=== PATIENT | female | born 1990 | race Caucasian/White ===

== ENCOUNTER 2022-07-04 13:08 | Outpatient (CLI) | payer BC, SELFPAY ==
[2022-07-06 15:02] LABS: Estradiol Premenol Female 50 pg/mL
[2022-07-06 17:24] LABS: Follicle Stimulating Hormone 6.9 IU/L
[2022-07-06 20:17] LABS: Prolactin 16.6 ng/mL (2.8-29.2)
== END 2022-07-04 13:09 | disposition home or self-care (01) ==
PROVIDERS: Visit Provider Obstetrics & Gynecology
DX: Z31.41 Encounter for fertility testing (principal)
CPT/HCPCS: 82670; 83001; 84146

== ENCOUNTER 2022-07-08 10:09 | Outpatient (CLI) | payer BC, SELFPAY ==
--- NOTE | 2022-07-08 10:15 | CRLHL7_ITS ---
For Patients: As a result of the Century Cures Act, medical imaging exams and procedure reports are released immediately into your electronic medical record. You may view this report before your referring provider. If you have questions, please contact your health care provider. Indication: infertility Technique: Routine hysterosalpingogram performed. Fluoroscopic time 28 seconds. IMPRESSION: Normal patency of the fallopian tubes. Normal endometrial canal. Dictated by Sammy Byers MD @ 07/08/2022 10:59:04 AM (Electronically Signed)
--- NOTE | 2022-07-08 10:48 | W.PM.GYNPROC ---
Procedure Note Time Seen by Provider: 10:48 Date Seen: 07/08/22 Procedure Details: PREPROCEDURE DIAGNOSIS: Infertility. POSTPROCEDURE DIAGNOSIS: 1. Infertility. 2. Patent fallopian tubes bilaterally. NAME OF PROCEDURE: Hysterosalpingogram. SURGEON: Ilan. ANESTHESIA: None. COMPLICATIONS: None. PROCEDURE: After obtaining verbal consent, the patient was placed in the dorsal lithotomy position on the x-ray table. An open-sided bivalve speculum was introduced into the vagina and the cervix easily visualized. The cervix and vagina were then prepped with Betadine. A balloon tipped double-lumen catheter was then gently inserted through the cervical opening into the uterine cavity to the level of the fundus. The balloon was insufflated with 2.5 mL of air. The speculum was removed. The patient was repositioned in the supine position, covered, and the radiologist was called to the room. A hysterosalpingogram was then performed. A total of 5 cc of Isovue 300 water soluble contrast dye was injected through the double-lumen catheter under moderate pressure. There was immediate fill of the uterine cavity to the cornua. The left fallopian tube, and then the right fallopian tube both filled with dye and there was spillage of dye on both sides into the pelvis. The balloon was deflated. The catheter was removed. The patient tolerated the procedure well, though she did have moderate cramping discomfort during and just after the procedure. She was discharged to home in stable condition and to [facility].
== END 2022-07-08 10:10 | disposition home or self-care (01) ==
PROVIDERS: Visit Provider Obstetrics & Gynecology
DX: N97.9 Female infertility, unspecified (principal)
CPT/HCPCS: 58340; 74740; A4649; Q9967

== ENCOUNTER 2022-07-22 14:00 | Outpatient (CLI) | payer BC, SELFPAY ==
[2022-07-27 15:15] LABS: Progesterone, HPLC-MS/MS 11.98 ng/mL
== END 2022-07-22 14:01 | disposition home or self-care (01) ==
PROVIDERS: Visit Provider Obstetrics & Gynecology
DX: Z31.41 Encounter for fertility testing (principal)
CPT/HCPCS: 84144

== ENCOUNTER 2025-07-01 16:28 | Emergency (ER) | payer OTHER, BC, SELFPAY ==
--- OUTSIDE RECORDS SUMMARY | 2025-07-01 16:31 | XMS_ITS | Encounter Summary ---
Author Organization [place] Address [facility] [place] [address] Care Team Providers Care Barn Hand Name Role Phone Jaci Nelson APRN CN Unavailable [phone] System, Provider Not In Primary Care Provider Un available Binh Plata MD Unavailable [phone] Binh Plata MD Unavailable [phone] Sammy Cummings MD Unavailable [phone] Binh Plata MD Unavailable + [phone] Adriana Velasquez MD Unavailable [phone] Sammi Cook Primary Care Provider [phone] Reason for Visit * Reason Onset Date Comments Results 01/11/2025 Encounter Details Date Type Department Care Team (Late st Contact Info) Description 01/11/2025 MyC Medical Advice [facility] [address] [place] [address] Sammy Cummings MD [address] [place] [address] Results Social History Tobacco Use Types Packs/Day Years Used Date Smoking Tobacco: Never Passive Smoke Exposure: Never Smokeless Tobacco: Never Alcohol Use Standard Drinks/Week Comments Not Currently 0 (1 standard drink = 0.6 oz pur e alcohol) PHQ-2 Answer Date Recorded PHQ-2 Score 0 12/06/2024 Education Answer Date Recorded What is the highest level of school you have completed or the highest degree you have received? 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 Sammy Cummings MD [facility] Dough Catcher Triage; Araceli Condon RN1 minute ago (10:52 AM) DB I wouldn't have any other advice than what you said. DB * Telephone Encounter - Araceli Condon RN - 01/11/2025 12:54 PM CDT [id number] CHARMAINE 01/03/25 Pt sends MyChart regarding scan from [facility] on 01/09/25. Pt asking about possibility of cleft lip. Pt was born with cleft lip. Scan states lips appeared normal. Nose was not well visualized and needs to be followed up on. I did review this with pt. Please advise further. Araceli Tolbert RN AG SERVICE MANAGER [place] documented in this encounter Plan of Treatment Upcoming Encounters Date Type Department Care Team (Late st Contact Info) Description 07/11/2025 2:15 PM CDT Office Visit [facility] [address] [place] [address] Binh Plata MD [address] [address] documented as of this encounter Visit Diagnoses Not on filedocumented in this encounter Care Teams Barn Hand Relationship Specialty Start Date End Date System, Provider Not In PCP - General Clinic 10/19/24 04/14/25 Sammi Cook [address] [address] PCP - General 04/15/25 Jaci Nelson APRN [facility] [address] [address] Rn Social Work stem roller or crusher operator 10/19/24 Binh Plata MD [address] [address] Physician stem roller or crusher operator 10/25/24 Binh Plata MD [address] [address] Assigned OBGYN Provider 01/02/25 Sammy Cummings MD [address] [address] Assigned OBGYN Provider 02/02/25 Binh Plata MD [address] [address] Assigned OBGYN Provider 03/04/25 Adriana Velasquez MD [address] [place] [address] Assigned Pediatric Specialist Provider 03/04/25 documented as of this encounter
--- OUTSIDE RECORDS SUMMARY | 2025-07-01 16:31 | XMS_ITS | Encounter Summary ---
Author Organization [place] Address [facility] [place] [address] Care Team Providers Care Car Salesperson Name Role Phone Jaci Nelson CHAS JENKINS Unavailable [phone] Binh Plata MD Unavailable [phone] Binh Plata MD Unavailable Adriana Velasquez MD Unavailable [phone] Sammi Cook Primary Care Provider [phone] Reason for Visit * Reason Onset Date Comments Blood Pressure Check 05/13/2025 Encounter Details Date Type Department Care Team (Late st Contact Info) Description 05/13/2025 Telephone [facility] [address] [place] [address] Binh Plata MD [address] [place], [place] [address] Blood Pressure Check Social History Tobacco Use Types Packs/Day Years Used Date Smoking Tobacco: Never Passive Smoke Exposure: Never Smokeless Tobacco: Never Alcohol Use Standard Drinks/Week Comments Not Currently 0 (1 standard drink = 0.6 oz pur e alcohol) PHQ-2 Answer Date Recorded PHQ-2 Score 0 12/06/2024 Thatcher Depression Scale Answer Date Recorded Thatcher Depression Scale Total 0 05/12/2025 The thought of harming myself has occurred to me . Never 05/12/2025 Food Insecurity Answer Date Recorded Within the past 12 months, d id you worry that your food would run out before you got money to buy more? No 05/09/2025 Within the past 12 months, d id the food you bought just not last and you didn t have money to get more? No 05/09/2025 Housing Stability Answer Date Recorded Do you have housing? (Miguel Angel callahan is defined as stable permanent housing and does not include staying outside in a car, in a tent, in an abandoned building, in an overnight senior care, or couch-surfing.) Yes 05/09/2025 Are you worried about losing your housing? No 05/09/2025 Financial Resource Strain Answer Date R ecorded Within the past 12 months, h ave you or your family members you live with been unable to get utilities (heat, electricity) when it was really needed? No 05/09/2025 Transportation Needs Answer Date Record ed Within the past 12 months, h as lack of transportation kept you from medical appointments, getting your medicines, non-medical meetings or appointments, work, or from getting things that you need? No 05/09/2025 Interpersonal Safety Answer Date Record ed Do you feel physically and e motionally safe where you currently live? Yes 05/09/2025 Within the past 12 months, h ave you been hit, slapped, kicked or otherwise physically hurt by someone? No 05/09/2025 Within the past 12 months, h ave you been humiliated or emotionally abused in other ways by your partner or ex-partner? No 05/09/2025 Education Answer Date Recorded What is the highest level of school you have completed or the highest degree you have received? 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 Left message with callback number and sent mychart message. STEVEN Maki * Telephone Encounter - Arely Yung RN - 05/13/2025 3:36 PM CDT ----- Message from Binh Plata sent at 05/13/2025 3:24 PM CDT ----- Regarding: RE: NORMA RN BP Check - Wednesday 05/16 Oh my gosh I'm so sorry! Patient is now added to the email! Binh Plata MD ----- Message ----- From: Arely Yung RN Sent: 05/13/2025 1:49 PM CDT To: Binh Plata MD Subject: FW: PP RN BP Check - Wednesday 05/16 Hi, There is no pt attached with this message. You mind shooting the MRN over? Thanks! STEVEN Maki ----- Message ----- From: Binh Plata MD Sent: 05/13/2025 1:47 PM CDT To: [facility] Butter Melter Triage Subject: PP RN BP Check - Wednesday 05/16 Hello: - Please call to coordinate a RN BP check on Wednesday 05/16. - At visit she should be instructed to check BP at home 1-2 x a day and record the results, and to call clinic with any values greater than or equal to 150/100 and/or with any symptoms of preeclampsia. Thanks, Binh Plata MD documented in this encounter Plan of Treatment Upcoming Encounters Date Type Department Care Team (Late st Contact Info) Description 07/11/2025 2:15 PM CDT Office Visit [facility] [address] [phone] Binh Plata MD [address] [address] documented as of this encounter Visit Diagnoses Not on filedocumented in this encounter Care Teams Car Salesperson Relationship Specialty Start Date End Date Sammi Cook [address] [address] PCP - General 04/15/25 Jaci Nelson APRN CNM [address] [address] Fish Hatchery Supervisor senior counsel 10/19/24 Binh Plata MD [address], [address] [address] Physician senior counsel 10/25/24 Binh Plata MD [address], [address] [address] Assigned OBGYN Provider 03/04/25 Adriana Velasquez MD [address] [place] [address] Assigned Pediatric Specialist Provider 03/04/25 documented as of this encounter
--- OUTSIDE RECORDS SUMMARY | 2025-07-01 16:31 | XMS_ITS | Encounter Summary ---
Author Organization [place] Address [address] [facility] [place] [address] Care Team Providers Care Chrome Polisher Name Role Phone Jaci Nelson CHAS JENKINS Unavailable [phone] Binh Plata MD Unavailable [phone] Binh Plata MD Unavailable [phone] Adriana Velasquez MD Unavailable [phone] Sammi Cook Primary Care Provider [phone] Encounter Details Date Type Department Care Team (Latest Contact Info) Description 05/11/2025 Medical Correspondence [facility] Information Management [address] [facility] [address] [place] [address] Scan, Non-Provider [place] [facility] DEPRESSION SCALE Social History Tobacco Use Types Packs/Day Years Used Date Smoking Tobacco: Never Passive Smoke Exposure: Never Smokeless Tobacco: Never Alcohol Use Standard Drinks/Week Comments Not Currently 0 (1 standard drink = 0.6 oz pur e alcohol) PHQ-2 Answer Date Recorded PHQ-2 Score 0 12/06/2024 Bradford Depression Scale Answer Date Recorded [place] Depression Scale Total 0 05/12/2025 The thought [...] in an abandoned building, in an overnight fpc, or couch-surfing.) Yes 05/09/2025 Are you worried [...] Sex Assigned at Female 10/25/2024 3:40 PM MUSIC CRITIC Legal Sex Female 4:56 AM MUSIC CRITIC Gender Identity Female 10/25/2024 3:40 PM MUSIC CRITIC Sexual Orientation Straight 10/25/2024 3: 40 PM MUSIC CRITIC 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 Not on file Not on file documented as of this encounter Plan of Treatment Upcoming Encounters Date Type Department Care Team (Late st Contact Info) Description 07/11/2025 2:15 PM CDT Office Visit [facility] [address] [place] [address] Binh Plata MD [address] [address] documented as of this encounter Visit Diagnoses Not on filedocumented in this encounter Care Teams Chrome Polisher Relationship Specialty Start Date End Date Sammi Cook [address] [address] PCP - General 04/15/25 Jaci Nelson APRN CNM [address] [address] Trouble Dispatcher feltmaker 10/19/24 Binh Plata MD [address] [address] Physician feltmaker 10/25/24 Binh Plata MD [address] [address] Assigned OBGYN Provider 03/04/25 Adriana Velasquez MD [address] [place] [id number] Assigned Pediatric Specialist Provider 03/04/25 documented as of this encounter
--- OUTSIDE RECORDS SUMMARY | 2025-07-01 16:31 | XMS_ITS | Encounter Summary ---
Author Organization [place] Address [facility]0 [facility] [address] Care Team Providers Care Debrander Name Role Phone Jaci Nelson CHAS JENKINS Unavailable [phone] Binh Plata MD Unavailable [phone] Binh Plata MD Unavailable [phone] Adriana Velasquez MD Unavailable [phone] Sammi Cook Primary Care Provider [phone] Reason for Visit * Reason Onset Date Comments Forms 05/25/2025 Encounter Details Date Type Department Care Team (Late st Contact Info) Description 05/25/2025 Telephone [facility] [address] [place] [address] Binh Plata MD [address] [place], [place] [address] Forms Social History Tobacco Use Types Packs/Day Years Used Date Smoking Tobacco: Never Passive Smoke Exposure: Never Smokeless Tobacco: Never Alcohol Use Standard Drinks/Week Comments Not Currently 0 (1 standard drink = 0.6 oz pur e alcohol) PHQ-2 Answer Date Recorded PHQ-2 Score 0 12/06/2024 Overton Depression Scale Answer Date Recorded [place] Depression Scale Total 0 05/12/2025 The thought [...] in an abandoned building, in an overnight snf, or couch-surfing.) Yes 05/09/2025 Are you worried [...] Sex Assigned at Female 10/25/2024 3:40 PM RESIDENTIAL GREEN BUILDING DESIGNER Legal Sex Female 4:56 AM RESIDENTIAL GREEN BUILDING DESIGNER Gender Identity Female 10/25/2024 3:40 PM RESIDENTIAL GREEN BUILDING DESIGNER Sexual Orientation Straight 10/25/2024 3: 40 PM RESIDENTIAL GREEN BUILDING DESIGNER 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 * Telephone Encounter - Merle Beck LPN - 05/27/2025 3:43 PM CDT Forms filled out. Awaiting Dr Plata's review and signature. * Telephone Encounter - Vika Cuevas - 05/25/2025 11:01 AM CDT Form received from: [facility] [employer] [place] fax Form requesting following info/need: FMLA leave [place] needed?: no/attached Location of form: above desk at front end manager When completed the route for return: [phone] fax documented in this encounter Plan of Treatment Upcoming Encounters Date Type Department Care Team (Late st Contact Info) Description 07/11/2025 2:15 PM CDT Office Visit [facility] [place] [address] [place] [phone] Binh Plata MD [address] [address] documented as of this encounter Visit Diagnoses Not on filedocumented in this encounter Care Teams Debrander Relationship Specialty Start Date End Date Sammi Cook [address] [address] PCP - General 04/15/25 Jaci Nelson APRN CNM [address] [address] Timber Supervisor tractor trailer operator 10/19/24 Binh Plata MD [address] [address] Physician tractor trailer operator 10/25/24 Binh Plata MD [address] [address] Assigned OBGYN Provider 03/04/25 Adriana Velasquez MD [address] [place] [address] Assigned Pediatric Specialist Provider 03/04/25 documented as of this encounter
--- OUTSIDE RECORDS SUMMARY | 2025-07-01 16:31 | XMS_ITS | Clinical Summary ---
Author Organization [place] Address [facility] [place] [address] Care Team Providers Care Electro Winning Operator Name Role Phone Jaci Nelson CHAS JENKINS Unavailable [phone] Ovi Plata MD Unavailable Ovi Plata MD Unavailable Adriana Velasquez MD Unavailable [phone] Sammi Cook Primary Care Provider [phone] Allergies Active Allergy Reactions Criticality Noted Date Comments Hydralazine Swelling 05/09/2025 Facial swelling, bloody nose Medications Vit-Fe Fumarate-FA ( MULTIVITAMIN PLUS IRON) 27-1 MG TABSIndications:P regnancy Take 1 tablet by mouth daily. Active albuterol (PROAIR HFA/PROVENTIL HFA/VENTOLIN HFA) 108 (90 Base) MCG/ACT inhaler Inhale 2 puffs into the lungs every 6 hours as needed for shortness of breath, wheezing or cough. Active oxyCODONE (ROXICODONE) 5 MG tabletIndications : delivery delivered Take 1 tablet (5 mg) by mouth every 6 hours as needed for moderate to severe pain. 5 tablet 5 Active NIFEdipine ER OSMOTIC (ADALAT CC) 30 MG 24 hr tabletIndications :Severe preeclampsia, third trimester Take 1 tablet (30 mg) by mouth 2 times daily. 90 tablet 5 Active enalapril (VASOTEC) 10 MG tabletIndications :Severe preeclampsia, third trimester Take 1 tablet (10 mg) by mouth daily. 45 tablet 5 Active senna-docusate (SENOKOT-S/PILLO LACE) 8.6-50 MG tabletIndications : delivery delivered Take 1-2 tablets by mouth daily as needed for constipation. 60 tablet 1 5 Active valACYclovir (VALTREX) 1000 mg tabletIndications :Recurrent cold sores Take 2 tablets (2,000 mg) by mouth once for 1 dose. 2 tablet 5 Active Active Problems Problem Noted Date Diagnosed Date Preeclampsia, severe 05/13/2025 Encounter for triage in patient 025 Pre-eclampsia 05/09/2025 Encounters Date Type Department Care Team Description 05/25/2025 Telephone [facility] [address] [facility] [address] [place] [phone] Ovi Plata MD Forms 05/16/2025 11:15 AM CDT Allied Health/Nurse Visit [facility] [address] [facility] [address] [place] [phone] Allied Health Visit 05/16/2025 Travel 05/13/2025 Telephone [facility] [address] [address] Ovi Plata MD Blood Pressure Check 05/11/2025 Medical Correspondence [facility] Information Management [address] [place] [address] [address] [place] [address] Scan, Non-Provider [facility] DEPRESSION SCALE 05/11/2025 Results Follow-Up [facility] [address] [facility] [address] [place] [address] Codi Berry, Subj: Message about your results 05/09/2025 7:00 PM CDT - 05/09/2025 8:30 PM CDT Surgery [facility] [address] [place] [address] Codi Berry DO section 05/09/2025 6:53 PM CDT Anesthesia Event [facility] [address] [place] [address] Jair Armendariz MD Thilgen, Randy M, 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 05/09/2025 10:08 AM CDT - 05/13/2025 4:30 PM CDT Hospital Encounter [facility] [address] [place] [address] Codi Berry DO delivery delivered (Primary Dx); Pre-eclampsia in third trimester; Severe preeclampsia, third trimester; Recurrent cold sores Discharge Disposition: Home-Health Care [facility] 05/09/2025 Telephone [facility] [address] [facility] [address] [place] [address] None Call Back (Call back ); Care 05/06/2025 Travel 04/25/2025 8:30 AM CDT Office Visit [facility] [address] [facility] [address] [place] [address] Briana Cummings MD Supervision of high risk , antepartum (Primary Dx) 04/25/2025 Travel 04/24/2025 Travel 04/13/2025 10:45 AM CDT Office Visit [facility] Maternal Medicine [facility] [address] [facility] [address] [place] [address] Adriana Velasquez MD Sabol, Bethany, MD resulting from in vitro fertilization in third trimester (Primary Dx) 04/13/2025 9:53 AM CDT - 04/13/2025 11:59 PM CDT Hospital Encounter [facility] Maternal Medicine [facility] [address] [facility] [address] [place] [address] Adriana Velasquez MD Thornton, Andrew Thomas, MD Sabol, Bethany, MD In vitro fertilization Discharge Disposition: Home or Self Care 04/13/2025 Results Follow-Up [facility] [place] [address] [place] [address] Ovi Plata MD Subj: Message about your results 04/13/2025 Travel from Last 3 Months Immunizations Immunization Administration Dates Next Due COVID-19 MONOVALENT 12+ (Pfizer) 07/13/2021 COVID-19 Vaccine, Unspecified 07/13/2021 Flu, Unspecified 07/13/2024,07/17/2017 HPV Quadrivalent 10/20/2009,05/12/2009, 9 Hepatitis B, Peds (Engerix-B/Recombivax HB) 02/10/2004,05/17/2003,04/13/2003 Historical DTP/aP 06/25/1996 INFLUENZA,TRIVALENT (FLUCELVAX) 08/05/2024 Influenza (H1N1) 10/20/2009 Influenza (IIV3) PF 07/13/2022 Influenza Vaccine >6 months,quad, PF 03/23/2024, 08/12/2022 Influenza Vaccine, 6+MO IM (QUADRIVALENT W/PRESERVATIVES) 08/08/2020,07/27/2016,07/04/2014,07/26,10/12/2010,10/23/2009 MMR (MMRII) 10/02/2016,06/25/1996 Meningococcal ACWY (Menactra ) 06/12/2009 OPV, trivalent, live 06/25/1996 TDAP (Adacel,Boostrix) 2025,10/15/2012 Td (Adult), Adsorbed 05/17/2003 Family History Medical History Relation Comments Seizure Disorder Brother Glaucoma Father Recurrent Miscarriage Maternal Grandmother No Known Problems Mother Cerebral palsy Sister Relation Status Comments Brother Alive Father Alive Maternal Grandmother Mother Alive Sister Alive Social History Tobacco Use Types Packs/Day Years Used Date Smoking Tobacco: Never Passive Smoke Exposure: Never Smokeless Tobacco: Never Tobacco Cessation:Counseling Given: No Alcohol Use Standard Drinks/Week Comments Not Currently 0 (1 standard drink = 0.6 oz pur e alcohol) PHQ-2 Answer Date Recorded PHQ-2 Score 0 12/06/2024 [place] Depression Scale Answer Date Recorded [place] Depression Scale Total 0 05/12/2025 The thought [...] Recorded Do you have housing? 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 Not on file Not on file Last Filed Vital Signs Vital Sign Reading Time Taken Comments Blood Pressure 128/78 05/16/2025 11:24 AM CDT Pulse 84 05/13/2025 12:34 PM CDT Temperature 36.9 C (98.4 F) 05/13/2025 7:37 AM CDT Respiratory Rate 16 05/13/2025 7:37 AM CDT Oxygen Saturation 100% 05/10/2025 5:24 PM CDT Inhaled Oxygen Concentration - - Weight 88.5 kg (195 lb) 05/16/2025 11:18 AM CDT Height 165.1 cm (5' 5) 05/09/2025 10:26 AM CDT Body Mass Index 32.45 05/09/2025 10:26 AM CDT Plan of Treatment Upcoming Encounters Date Type Department Care Team (Late st Contact Info) Description 07/11/2025 2:15 PM CDT Office Visit [facility] [address] [place] [address] Ovi Plata MD [address] [place] [address] Health Maintenance Due Date Last Done Comments ADVANCE CARE PLANNING 1991 ANNUAL REVIEW OF HM ORDERS 1991 ASTHMA ACTION PLAN 1991 ASTHMA CONTROL TEST 1991 PNEUMOCOCCAL VACCINE: PEDIAT RICS (0 to 5 YEARS) AND AT-RISK PATIENTS (6 to 49 YEARS) (1 of 2 - PCV) 2010 YEARLY PREVENTIVE VISIT 03/23/2025 03/23/20 24, 08/12/2022, 05/16/2021, Additional history exists INFLUENZA VACCINE (#1) 2025 , 07/13/2024, 03/23/2024, Additional history exists HPV TEST 12/06/2029 12/06/2024, 08/08/2020 PAP 12/06/2029 12/06/2024, 11/14, 05/16/2021, Additional history exists DTAP/TDAP/TD VACCINE (5 - Td or Tdap) 2035 2025, 10/15/2012, 05/17/2003, Additional history exists ZOSTER VACCINE (1 of 2) 2041 HEPATITIS B VACCINE Completed 02/10/2004, 05/17/2003, 04/13/2003 MENINGITIS VACCINE Completed 06/12/2009 HPV VACCINE Completed 10/20/2009, 04/14, 03/08/2009 COVID-19 VACCINE Completed 08/05/2024, 07/13/2021 HEPATITIS C SCREENING Completed 11/11/2024 , 10/28/2023, 08/12/2022, Additional history exists HIV SCREENING Completed 11/11/2024, 10/28/2023 PHQ-2 (once per calendar year) Completed 12/06/2024 , 11/09/2024 Procedures Procedure Name Priority Date/Time Associated Diagnosis Comments PLATELET COUNT Routine 05/10/2025 6:42 AM CDT HEMOGLOBIN Routine 05/10/2025 6:42 AM CDT CREATININE Routine 05/10/2025 6:42 AM CDT AST Routine 05/10/2025 6:42 AM CDT ALT Routine 05/10/2025 6:42 AM CDT EXTRA GREEN TOP (LITHIUM HEPARIN) TUBE Routine 05/09/2025 9:49 PM CDT EXTRA TUBE Routine 05/09/2025 9:49 PM CDT HEMOGLOBIN STAT 05/09/2025 9:49 PM CDT PLACENTA PATH ORDER AND INDICATIONS Routine 05/09/2025 7:38 PM CDT ANE SPINAL BLOCK FORM Routine 05/09/2025 7:00 PM CDT SECTION 05/09/2025 6:57 PM CDT 35 weeks gestation of ABO/RH TYPE AND SCREEN STAT 05/09/2025 12:22 PM CDT TYPE AND SCREEN, ADULT STAT 05/09/2025 12:22 PM CDT TREPONEMA ABS W REFLEX TO RPR AND TITER STAT 05/09/2025 12:22 PM CDT GROUP B STREP PCR STAT 05/09/2025 11: 52 AM CDT CBC WITH PLATELETS (LIMITED OCCURRENCES) STAT 05/09/2025 10:23 AM CDT COMPREHENSIVE METABOLIC PANEL (LIMITED OCCURRENCES) STAT 05/09/2025 10:23 AM CDT PROTEIN AND CREATININE WITH RATIO RANDOM URINE STAT 05/09/2025 10:22 AM CDT [facility] COMPREHENSIVE SINGLE F/U Routine 04/13/2025 10:50 AM CDT In vitro fertilization GLUCOSE TOLERANCE GEST SCREEN 1 HOUR Routine 2025 9:19 AM CDT Supervision of normal [place] NON-INVASIVE SCREENING PREQUEL Routine 12/06/2024 10:04 AM BARREL INSPECTOR TIGHT Supervision of high risk , antepartum HPV AND GYNECOLOGIC CYTOLOGY PANEL Routine 12/06/2024 8:59 AM BARREL INSPECTOR TIGHT Screening for cervical cancer HIV ANTIGEN ANTIBODY COMBO Routine 11/11/2024 2:39 PM BARREL INSPECTOR TIGHT Encounter for supervision of normal first in first trimester HEPATITIS C ANTIBODY Routine 11/11/2024 2:39 PM BARREL INSPECTOR TIGHT Encounter for supervision of normal first in first trimester from Last 3 Months or Most Recently Relevant to Health Maintenance Results * Platelet count (05/10/2025 6:42 AM CDT) Platelet Count 179 150 - 450 10e3/uL 05/10/2025 6:57 AM CDT [facility] MCV 90 78 - 100 fL 05/10/2025 6:57 AM CDT [facility] Blood STRUCTURE OF RIGHT UPPER LIMB / Unknown Venipuncture / Unknown 05/10/2025 6:42 AM CDT 05/10/2025 6:52 AM CDT Codi Berry DO LAB - BLOOD ORDERABLES Fi nal Result [facility] [address] Lab (1st floor, no room number) [address] * Hemoglobin (05/10/2025 6:42 AM CDT) Only the most recent of2 resultswithin the time period is included. Hemoglobin 11.8 11.7 - 15.7 g/dL 05/10/2025 6:57 AM CDT LABORATORY MCV 90 78 - 100 fL 05/10/2025 6:57 AM CDT LABORATORY Blood STRUCTURE OF RIGHT UPPER LIMB / Unknown Venipuncture / Unknown 05/10/2025 6:42 AM CDT 05/10/2025 6:52 AM CDT us Codi Berry DO LAB - BLOOD ORDERABLES Fi nal Result [facility] [address] Lab (1st floor, no room number) [address] * Creatinine (05/10/2025 6:42 AM CDT) Creatinine 0.67 0.51 - 0.95 mg/dL 05/10/2025 7:16 AM CDT LABORATORY GFR Estimate >90 >60 mL/min/1.7 3m2 05/10/2025 7:16 AM CDT [facility] Comment:eGFR calculated us2020 CKD-EPI equation. Blood STRUCTURE OF RIGHT UPPER LIMB / Unknown Venipuncture / Unknown 05/10/2025 6:42 AM CDT 05/10/2025 6:52 AM CDT Codi Berry DO LAB - BLOOD ORDERABLES Fi nal Result [facility] [address] Lab (1st floor, no room number) [place] [phone] [place] [address] * AST (05/10/2025 6:42 AM CDT) AST 19 0 - 45 U/L 05/10/2025 7:1 6 AM CDT [facility] Blood STRUCTURE OF RIGHT UPPER LIMB / Unknown Venipuncture / Unknown 05/10/2025 6:42 AM CDT 05/10/2025 6:52 AM CDT Codi Berry DO LAB - BLOOD ORDERABLES Fi nal Result Performing Organization Address [facility]/ZIP Co de Phone Number [facility] [address] Lab (1st floor, no room number) [place] [phone] [place] [address] * ALT (05/10/2025 6:42 AM CDT) ALT 7 0 - 50 U/L 05/10/2025 7:1 6 AM CDT [facility] Blood STRUCTURE OF RIGHT UPPER LIMB / Unknown Venipuncture / Unknown 05/10/2025 6:42 AM CDT 05/10/2025 6:52 AM CDT Codi Berry DO LAB - BLOOD ORDERABLES Fi nal Result [facility] [address] Lab (1st floor, no room number) [place] [phone] * Extra Green Top ([place] Heparin) Tube (05/09/2025 9:49 PM CDT) Hold Specimen JI 05/09/2025 11:31 PM CDT LABORATORY Blood STRUCTURE OF RIGHT HAND / Unknown Venipuncture / Unknown 05/09/2025 9:49 PM CDT 05/09/2025 10:17 PM CDT us Codi Berry DO LAB - BLOOD ORDERABLES Fi nal Result LABORATORY [facility] Lab [address] Lab (1st floor, no room number) [place] [address] * Placenta path order and indications (05/09/2025 7:38 PM CDT) Case Report Surgical Pathology Report Case: [id number] Authorizing Provider: Codi Berry DO Collected: 05/09/2025 07:38 PM Ordering Location: [facility] Received: 05/10/2025 07:42 AM Birthplace Pathologist: Geri Moctezuma MD Specimen: Placenta 05/11/2025 12:12 PM CDT LABORATORY Final Diagnosis A. Placenta, 488 grams: -Mature benitez placenta with unremarkable membranes and three-vessel umbilical cord. 05/11/2025 12:12 PM CDT LABORATORY at 1212 CDT Clinical Information pre-e 05/11/2025 12:12 PM CDT LABORATORY Gross Description A(A). Placenta, : The specimen is received in formalin labeled with the patient's name, medical record number, and other identifying information and designated placenta. Type: Benitez CORD Length: 33.5 cm Diameter: 1.2-2.1 cm Number of vessels: 3 Insertion: Eccentric (located 1.5 cm from placental disc edge) MEMBRANES Condition: Disrupted Color: Pale-griggs Transparency: thin and translucent to mildly thickened Insertion: marginal DISC Trimmed weight: 488 g Dimensions: 18.5 x 16.8 x 0.3-3.8 cm Surface: steel blue and glistening with a normal arborizing pattern of vasculature Maternal surface: Red-brown intact, flattened cotyledons Findings upon sectioning: Red-brown, soft cut surface with multifocal areas of fibrous mottling predominately located along the peripheral edge of the placental disc (makes up approximate less than 5% of placental disc) SUMMARY OF SECTIONS: A1- membrane roll and umbilical cord A2-A3-full thickness central 1/3 of placenta, bisected A4-A5-full thickness peripheral placenta, bisected A6-representativ e sections of fibrous mottling (TIFFANY Bustillo (ASCP) 05/10/2025 8:10 AM 05/11/2025 12:12 PM CDT LABORATORY Microscopic Description Microscopic examination was performed. 05/11/2025 12:12 PM CDT LABORATORY Performing Labs The technical component of this testing was completed at [facility]. Stain controls for all stains resulted within this report have been reviewed and show appropriate reactivity. 05/11/2025 12:12 PM CDT LABORATORY Case Images 05/11/2025 12:12 PM CDT LABORATORY Placenta PLACENTAL STRUCTURE / Unknown Non-blood Collection / Unknown 05/09/2025 7:38 PM CDT 05/10/2025 7:42 AM CDT us Codi Berry DO LAB - ANA AP Final Res ult LABORATORY [facility] Lab [address] 1st floor, [address] [place] [address], [facility] [phone] LABORATORY [facility] Lab [address] [facility] Lab (1st floor, no room number) [place] [address] * Spinal Block (05/09/2025 7:00 PM CDT) Narrative Jair Armendariz MD - 05/09/2025 7:00 PM CDT Jair Armendariz MD 05/09/2025 7:08 PM Intrathecal injection Procedure Note Pre-Procedure Staff - Anesthesiologist: Jair Armendariz MD Performed By: anesthesiologist Location: OB Procedure Start/Stop Times: 05/09/2025 7:00 PM and 05/09/2025 7:03 PM Pre-Anesthestic Checklist: patient identified, IV checked, risks and benefits discussed, informed consent, monitors and equipment checked, pre-op evaluation and at physician/surgeon's request Timeout: Correct Patient: Yes Correct Procedure: Yes Correct Site: Yes Correct Position: Yes Procedure Documentation Procedure: intrathecal injection Patient Position: sitting Patient Prep/Sterile Barriers: sterile gloves, mask Skin prep: Chloraprep Insertion Site: L3-4. (midline approach). Needle Gauge: 25. Spinal Needle Type: Sprotte Introducer used Introducer: 20 G # of attempts: 1 and # of redirects: 1 Assessment/Narrative Paresthesias: No. Sensory Level: T5 CSF fluid: clear. Medication(s) Administered 0.75% Hyperbaric Bupivacaine (Intrathecal) - Intrathecal 1.6 mL - 05/09/2025 7:03:00 PM Morphine PF 1 mg/mL (Intrathecal) - Intrathecal 0.15 mg - 05/09/2025 7:03:00 PM Medication Administration Time: 05/09/2025 7:00 PM FOR [facility] ([facility]) ONLY: Pain Team Contact information: please page the Pain Team Via eCircle. Search Pain. During daytime hours, please page the attending first. At night please page the resident first. us Jair Armendariz MD [place] ANESTHESIA Final Resu lt * Adult Type and Screen (05/09/2025 12:22 PM CDT) ABO/RH(D) O NEG 05/09/2025 12:06 PM CDT [facility] BLOOD BANK Antibody Screen Negative Negative 05/09/2025 12:06 PM CDT RH BLOOD BANK SPECIMEN EXPIRATION DATE 05/12/2025 11:59:00 PM CDT 05/09/2025 12:06 PM CDT RH BLOOD BANK Blood BLOOD SPECIMEN / Unknown Venipuncture / Unknown 05/09/2025 12:22 PM CDT 05/09/2025 12:28 PM CDT us Codi Berry DO LAB - BLOOD BANK TEST ORD ER Final Result BLOOD BANK [address] [place] [address], [facility] * Treponema Abs w Reflex to RPR and Titer (05/09/2025 12:22 PM CDT) Treponema Antibody Total Nonreactive Nonreactive 05/09/2025 4:54 PM CDT SPECIALTY LABS Blood BLOOD SPECIMEN / Unknown Venipuncture / Unknown 05/09/2025 12:22 PM CDT 05/09/2025 12:28 PM CDT Codi Berry DO LAB - BLOOD ORDERABLES Fi nal Result [facility] CORE/PROT/ENDO Specialty Core/Prot/Endo [address] [facility] Building, Room [id number] [place] [address] SPECIALTY LABS Specialty Lab [address] [facility], [address] [address], [place] * Group B strep PCR (05/09/2025 11:52 AM CDT) Group B Strep PCR Negative Negative 025 12:45 PM CDT [facility] Comment:Presumed negative fo r Streptococcus agalactiae (Group B Streptococcus) or the number of organisms may be below the limit of detection of the assay. Swab STRUCTURE OF RECTOVAGINAL SEPTUM / Unknown Non-blood Collection / Unknown 05/09/2025 11:52 AM CDT 05/09/2025 12:13 PM CDT Narrative [facility] - 05/10/2025 12:45 PM CDT The [employer] Xpert GBS LB Assay, performed on the [employer] Systems, is a qualitative in vitro diagnostic test designed to detect Group B Streptococcus (GBS) DNA from enriched vaginal/rectal swab specimens, using fully automated, real-time polymerase chain reaction (PCR) with fluorogenic detection of the amplified DNA. Xpert GBS LB Assay testing is indicated as an aid in determining GBS colonization status in antepartum women. This assay does not diagnose or monitor treatment for GBS infections. The [employer] Xpert GBS LB Assay is intended for use in hospital, reference or state laboratory settings. The device is not intended for ingoi-yo-xurv use. us Codi Berry DO LAB - MICRO GENERAL ORDER MILAGROS Final Result [facility] Inf. Diseases Di[facility]. Lab [address] [facility], [address] [place] [address], [place] * CBC with Platelets (Limited Occurrences) (05/09/2025 10:23 AM CDT) [facility] WBC Count 7.7 4.0 - 11.0 10e3/uL 05/09/2025 10:37 AM CDT [facility] RBC Count 3.94 3.80 - 5.20 10e6/uL 05/09/2025 10:37 AM CDT [facility] Hemoglobin 12.3 11.7 - 15.7 g/dL 05/09/2025 10:37 AM CDT [facility] Hematocrit 35.2 35.0 - 47.0 % 05/09/2025 10:37 AM CDT LABORATORY MCV 89 78 - 100 fL 05/09/2025 10:37 AM CDT LABORATORY MCH 31.2 26.5 - 33.0 pg 05/09/2025 10:37 AM CDT LABORATORY MCHC 34.9 31.5 - 36.5 g/dL 05/09/2025 10:37 AM CDT LABORATORY RDW 12.6 10.0 - 15.0 % 05/09/2025 10:37 AM CDT LABORATORY Platelet Count 183 150 - 450 10e3/uL 05/09/2025 10:37 AM CDT LABORATORY Blood STRUCTURE OF LEFT UPPER LIMB / Unknown Venipuncture / Unknown 05/09/2025 10:23 AM CDT 05/09/2025 10:28 AM CDT us Codi Berry DO LAB - BLOOD ORDERABLES Fi nal Result [facility] Lab [address] Lab (1st floor, no room number) [place] [address], [place] * (ABNORMAL) Comprehensive Metabolic Panel (Limited Occurrences) (05/09/2025 10:23 AM CDT) Sodium 138 135 - 145 mmol/L 05/09/2025 10:59 AM CDT LABORATORY Potassium 3.9 3.4 - 5.3 mmol/L 05/09/2025 10:59 AM CDT LABORATORY Carbon Dioxide (CO2) 21(L) 22 - 29 mmol/L 05/09/2025 10:59 AM CDT LABORATORY Anion Gap 13 7 - 15 mmol/L 05/09/2025 10:59 AM CDT LABORATORY Urea Nitrogen 5.0(L) 6.0 - 20.0 mg/dL 05/09/2025 10:59 AM CDT LABORATORY Creatinine 0.67 0.51 - 0.95 mg/dL 05/09/2025 10:59 AM CDT LABORATORY GFR Estimate >90 >60 mL/min/1.7 3m2 05/09/2025 10:59 AM CDT LABORATORY Comment:eGFR calculated us2020 CKD-EPI equation. Calcium 8.7(L) 8.8 - 10.4 mg/dL 05/09/2025 10:59 AM CDT LABORATORY Chloride 104 98 - 107 mmol/L 05/09/2025 10:59 AM CDT LABORATORY Glucose 74 70 - 99 mg/dL 05/09/2025 10:59 AM CDT LABORATORY Alkaline Phosphatase 152(H) 40 - 150 U/L 05/09/2025 10:59 AM CDT LABORATORY AST 14 0 - 45 U/L 05/09/2025 10:59 AM CDT LABORATORY ALT 7 0 - 50 U/L 05/09/2025 10:59 AM CDT LABORATORY Protein Total 5.8(L) 6.4 - 8.3 g/dL 05/09/2025 10:59 AM CDT LABORATORY Albumin 3.4(L) 3.5 - 5.2 g/dL 05/09/2025 10:59 AM CDT LABORATORY Bilirubin Total 0.2 <=1.2 mg/dL 05/09/2025 10:59 AM CDT LABORATORY Blood STRUCTURE OF LEFT UPPER LIMB / Unknown Venipuncture / Unknown 05/09/2025 10:23 AM CDT 05/09/2025 10:28 AM CDT Codi Sharpwerner Berry DO LAB - BLOOD ORDERABLES Fi nal Result Performing Organization Address City/[facility]/ZIP Co de Phone Number [facility] [address] Lab (1st floor, no room number) [place] [address] * Protein random urine (05/09/2025 10:22 AM CDT) Total Protein Urine mg/dL 11.9 mg/dL 05/09/2025 11:23 AM CDT LABORATORY Comment:The reference ranges have not been established in urine protein. The results should be integrated into the clinical context for interpretation. Total Protein Urine mg/mg Creat 0.11 0.00 - 0.20 mg/mg Cr 05/09/2025 11:23 AM CDT LABORATORY Creatinine Urine mg/dL 103.9 mg/dL 05/09/2025 11:23 AM CDT LABORATORY Comment:The reference ranges have not been established in urine creatinine. The results should be integrated into the clinical context for interpretation. Urine URINE SPECIMEN OBTAINED BY CLEAN CATCH PROCEDURE / Unknown Non-blood Collection / Unknown 05/09/2025 10:22 AM CDT 05/09/2025 10:58 AM CDT Codi Berry DO LAB - URINE ORDERABLES Fi nal Result Performing Organization Address [facility]/ZIP Co de Phone Number [facility] [address] [facility] Lab (1st floor, no room number) [place] [address] * [facility] Comprehensive Single F/U (04/13/2025 10:50 AM CDT) Anatomical Region Laterality Modality Ultrasound 04/13/2025 10:2 0 AM CDT Impressions 04/13/2025 10:58 AM CDT IMPRESSION ----- 1. Benitez at 32w 0d gestational age. 2. None of the anomalies commonly detected by ultrasound were evident in the limited anatomic survey as described above. 3. Growth parameters and estimated weight were appropriate for gestational age. 4. The amniotic fluid volume appeared normal. Narrative 04/13/2025 10:58 AM CDT Comp Follow Up ----- Pat. Name: GLORIA BELCHER Study Date: 04/13/2025 10:20am Pat. NO: [id number] Referring MD: OVI PLATA Site: Intelligence Officer Basic: Cori Cruz RDMS : 1990 Age: 35 ----- INDICATION ----- In Vitro Fertilization METHOD ----- Transabdominal ultrasound examination. View: Suboptimal view: limited by position ----- Benitez . Number of fetuses: 1 DATING ----- Date Details Gest. age ARIANNA Conception Conception: IVF Embryo transfer 09/20/2024 IVF / ET: 5 d 32 w + 0 d 06/08/2025 Previous U/S 11/01/2024 GA, GA 9 w + 1 d 32 w + 3 d 06/05/2025 U/S 04/13/2025 based upon AC, BPD, Femur, HC 32 w + 5 d 06/03/2025 Assigned dating based on the IVF / ET date, selected on 04/13/2025 32 w + 0 d 06/08/2025 GENERAL EVALUATION ----- Cardiac activity present. FHR 130 bpm. movements: present. Presentation: cephalic Placenta: Anterior Umbilical cord: 3 vessel cord Amniotic fluid: Amount of AF: normal. MVP 5.4 cm BIOMETRY ----- BPD 82.5 mm 33w 1d Hadlock OFD 109.4 mm 32w 6d Nicolaides HC 305.6 mm 34w 0d Hadlock Cerebellum tr 41.0 mm 35w 0d Nicolaides AC 291.2 mm 33w 1d 80% Hadlock Femur 58.1 mm 30w 3d Hadlock Weight Calculation: EFW 1,969 g 52% Hadlock EFW (lb,oz) 4 lb 5 oz EFW by Hadlock ([id number]) Head / Face / Neck Biometry: Supervisor Production Department 4.3 mm CM 4.9 mm ANATOMY ----- The following structures appear normal: Head / Neck Cranium. Head size. Head shape. Lateral ventricles. Midline falx. Cavum septi pellucidi. Cerebellum. Cisterna magna. Thalami. Face Lips. Nose. Heart / Thorax RVOT view. LVOT view. 1-njsjbe-fbuzakb view. Diaphragm. Abdomen Stomach. Kidneys. Bladder. Spine Cervical spine. Thoracic spine. Lumbar spine. Sacral spine. The following structures were documented previously: Face Profile. Heart / Thorax 4-chamber view. sex: male. MATERNAL STRUCTURES ----- Cervix Suboptimal Right Ovary Not examined Left Ovary Not examined RECOMMENDATION ----- Thank-you for referring your patient for ultrasound assessment. I discussed the findings on today's ultrasound with the patient. Weekly surveillance has been scheduled with our office from 36 weeks until delivery. Return to primary provider for continued care. If you have questions regarding today's evaluation or if we can be of further service, please contact the [facility]. anomalies may be present but not detected I spent a total of 10 minutes (excluding the ultrasound interpretation) on the date of this encounter including preparing to see the patient (reviewing medical records/tests), in direct dvum-oq-naxk contact with the patient during the visit counseling and discussing the plan of care and documenting the visit in the electronic medical record. Procedure Note Mena Cash MD - 04/13/2025 Comp Follow Up ----- Pat. Name: GLORIA BELCHER Study Date: 04/13/2025 10:20am Pat. NO: [id number] Referring MD: OVI PLATA Site: Intelligence Officer Basic: Cori Cruz RDMS : 1990 Age: 35 ----- INDICATION ----- In Vitro Fertilization METHOD ----- Transabdominal ultrasound examination. View: Suboptimal view: limited byfetal position ----- Benitez . Number of fetuses: 1 DATING ----- DateDetailsGest. age ARIANNA ConceptionConception: IVF Embryo transfer 09/20/2024 IVF /ET: 5 d32 w + 0 d 06/08/2025 Previous U/S 11/01/2024 GA, GA9 w + 1 d32 w + 3 d 06/05/2025 U/S 04/13/2025ased upon AC, BPD, Femur, HC32 w + 5 d 06/03/2025 Assigned dating based on the IVF / ET date, selected on04/13/2025 32w + 0 d 06/08/2025 GENERAL EVALUATION ----- Cardiac activity present. FHR 130 bpm. movements: present.Presentation: cephalic Placenta: Anterior Umbilical cord: 3 vessel cord Amniotic fluid: Amount of AF: normal. MVP 5.4 cm BIOMETRY ----- BPD 82.5mm 33w 1dHadlock OFD 109.4mm 32w 6dNicolaides HC 305.6mm 34w 0dHadlock Cerebellum tr 41.0mm 35w 0dNicolaides AC 291.2mm 33w 1d 80%Hadlock Femur 58.1mm 30w 3dHadlock Weight Calculation: EFW 1,969g 52%Hadlock EFW (lb,oz) 4 lb 5oz EFW by Hadlock([id number]) Head / Face / Neck Biometry: Supervisor Production Department 4.3mm CM 4.9mm ANATOMY ----- The following structures appear normal: Head / Neck Cranium. Head size. Head shape.Lateral ventricles. Midline falx. Cavum septi pellucidi. Cerebellum.Cisterna magna. Thalami. Face Lips. Nose. Heart / Thorax RVOT view. LVOT view. [id number]-isnodfpqxzv. Diaphragm. Abdomen Stomach. Kidneys. Bladder. Spine Cervical spine. Thoracic spine.Lumbar spine. Sacral spine. The following structures were documented previously: Face Profile. Heart / Thorax 4-chamber view. sex: male. MATERNAL STRUCTURES ----- Cervix Suboptimal Right Ovary Not examined Left Ovary Not examined RECOMMENDATION ----- Thank-you for referring your patient for ultrasound assessment. Idiscussed the findings on today's ultrasound with the patient. Weekly surveillance has been scheduled with our office from 36weeks until delivery. Return to primary provider for continued care. If you have questions regarding today's evaluation or if [facility] can [facility], please contact [facility]. anomalies may be present but not detected I spent a total of 10 minutes (excluding the ultrasound interpretation) onthe date of this encounter including preparing to see the patient(reviewing medical records/tests), in direct lbvk-dq-khoh contact with the patient during the visitcounseling and discussing the plan of care and documenting the visit inthe electronic medical record. IMPRESSION ----- 1. Benitez at 32w 0d gestational age. 2. None of the anomalies commonly detected by ultrasound were evident inthe limited anatomic survey as described above. 3. Growth parameters and estimated weight were appropriate forgestational age. 4. The amniotic fluid volume appeared normal. Adriana Velasquez MD [facility] US ORDERABLES Edited Result - Final * Glucose tolerance, gest screen, 1 hour (2025 9:19 AM CDT) Glu Gest Screen 1hr 50g 100 70 - 129 mg/dL 2025 9:21 AM CDT [facility] Blood BLOOD SPECIMEN / Unknown Venipuncture / Unknown 2025 9:19 AM CDT 2025 9:19 AM CDT Narrative [facility] - 2025 9:21 AM CDT This is a screening test for Gestational Diabetes Mellitus. If results are 130 mg/dL or greater, a Standard 100 gram Gestational 3 hour Glucose Tolerance should be performed. Ovi Plata MD LAB - BLOOD ORDERABLES Final Result ID LABORATORY [facility] [address] [facility], [address] [place] [address] * Myriad Non-Invasive Screening???Prequel (12/06/2024 10:04 AM BARREL INSPECTOR TIGHT) Pathologist [facility] See Scanned Result [facility]AD NON-INVASIVE SCREENING PREQUEL-Scann ed 12/16/2024 11:50 AM BARREL INSPECTOR TIGHT [employer] Blood BLOOD SPECIMEN / Unknown Venipuncture / Unknown 12/06/2024 10:04 AM BARREL INSPECTOR TIGHT 12/06/2024 10:04 AM BARREL INSPECTOR TIGHT Ovi Plata MD LAB - BLOOD ORDERABLES Final Result [employer] [address] [place] [address], [facility] [phone] * HPV and Gynecologic Cytology Panel - Recommended Age 30 - 65 Years (12/06/2024 8:59 AM BARREL INSPECTOR TIGHT) Pathologist [facility] Human Papilloma Virus 16 DNA Negative Negative 12/08/2024 11:23 AM BARREL INSPECTOR TIGHT [facility] Human Papilloma Virus 18 DNA Negative Negative 12/08/2024 11:23 AM BARREL INSPECTOR TIGHT [facility] Human Papilloma Virus Other Negative Negative 12/08/2024 11:[address] [facility] FINAL DIAGNOSIS This patient's sample is negative for high risk HPV DNA. METHODOLOGY: The [employer] system uses automated extraction, simultaneous amplification of HPV (E6/E7 oncogenes) and beta-globin, followed by real time detection of fluorescent labeled HPV and beta globin using specific oligonucleotide probes. The test specifically identifies types HPV 16 DNA and HPV 18 DNA while concurrently detecting the rest of the high risk types (31, 33, 35, 39, 45, 51, 52, 56, 58, 59, 66 or 68). COMMENTS: This test is not intended for use as a screening device for woman under age 30 with normal cervical cytology. Results should be correlated with cytologic and histologic findings. Close clinical follow up is recommended. Please see the separate Gynecologic Cytology (Pap) report from the same collection date. 12/08/2024 11:23 AM BARREL INSPECTOR TIGHT [facility] Brushing ENDOCERVICAL STRUCTURE / Unknown Non-blood Collection / Unknown 12/06/2024 8:59 AM BARREL INSPECTOR TIGHT 12/06/2024 9:43 AM BARREL INSPECTOR TIGHT us Ovi Plata MD LAB - BLOOD ORDERABLES Final Result [facility] Specialty Lab [address] [facility], [address] [address], [facility]NOSTICS Molecular Diagnostics [address] [facility], [address] [address], [facility] * HIV Antigen Antibody Combo (11/11/2024 2:39 PM BARREL INSPECTOR TIGHT) Pathologist [facility] HIV Antigen Antibody Combo Nonreactive Nonreactive 11/11/2024 10:07 PM BARREL INSPECTOR TIGHT [facility] Comment:Negative HIV-1 p24 a ntigen and HIV-1/2 antibody screening test results usually indicate the absence of HIV-1 and HIV-2 infection. However, such negative results do not rule-out acute HIV infection. If acute HIV-1 or HIV-2 infection is suspected, detection of HIV-1 or HIV-2 RNA is recommended. This result is obtained using the Leilani Ele[employer]ys HIV Duo method on the angie e801 immunoassay analyzer. Blood BLOOD SPECIMEN / Unknown Venipuncture / Unknown 11/11/2024 2:39 PM BARREL INSPECTOR TIGHT 11/11/2024 2:39 PM BARREL INSPECTOR TIGHT Ovi Plata MD LAB - BLOOD ORDERABLES Final Result LABORATORY [facility] [address] [facility], [address] [id number] * Hepatitis C antibody (11/11/2024 2:39 PM BARREL INSPECTOR TIGHT) [facility] Hepatitis C Antibody Nonreactive Nonreactive 11/11/2024 10:07 PM BARREL INSPECTOR TIGHT [facility] Comment:A nonreactive screen ing test result does not exclude the possibility of exposure to or infection with HCV. Nonreactive screening test results in individuals with prior exposure to HCV may be due to antibody levels below the limit of detection of this assay or lack of reactivity to the HCV antigens used in this assay. Patients with recent HCV infections (<3 months from time of exposure) may have false- negative HCV antibody results due to the time needed for seroconversion (average of 8 to 9 weeks). Blood BLOOD SPECIMEN / Unknown Venipuncture / Unknown 11/11/2024 2:39 PM BARREL INSPECTOR TIGHT 11/11/2024 2:39 PM BARREL INSPECTOR TIGHT Result [facility] Ovi Plata MD LAB - BLOOD ORDERABLES Final Result Performing Organization Address City/[facility]/ZIP Co de Phone Number LABORATORY [facility] [address] [facility], [address] from Last 3 Months or Most Recently Relevant to Health Maintenance Insurance [facility] [facility] [employer] [facility] [employer] Advance Directives For more information, please contact: [phone] * Full Code (Latest Code Status on File) Date Activated Date Inactivated Comments 05/09/2025 10:01 PM 05/13/2025 6:54 PM All basic an d advanced life-sustaining interventions are performed as appropriate Question Answer Comments Code status determined by: Discussion with chayo nt/ legal decision maker * Full Code Date Activated Date Inactivated Comments 05/09/2025 12:05 PM 05/09/2025 10:01 PM All basic and advanced life-sustaining interventions are performed as appropriate Question Answer Comments Code status determined by: Discussion with chayo nt/ legal decision maker Care Teams Electro Winning Operator Relationship Specialty Start Date End Date Sammi Cook [facility] [address] [address] PCP - General 04/15/25 Jaci Nelson APRN CNM [address] [address] Employment Representative insole department worker 10/19/24 Ovi Plata MD [address] [address] Physician insole department worker 10/25/24 Ovi Plata MD [address] [address] Assigned OBGYN Provider 03/04/25 Adriana Velasquez MD [address] [place] [address] Assigned Pediatric Specialist Provider 03/04/25
--- OUTSIDE RECORDS SUMMARY | 2025-07-01 16:31 | XMS_ITS | Clinical Summary ---
Author Organization [facility] Address [address] [place] [address] Care Team Providers Care Digital Artist Name Role Phone None Reported, Pcp Primary Care Provider Unavail able Source Comments Patient records contain information from all sites at [facility]. For routine questions regarding patient records, call [phone] during business hours, M-F 8:00 AM - 5:00 PM Central Time. Record requests for emergency care only can be directed to [phone] at any time.[facility] Allergies No known active allergies Medications valACYclovir (VALTREX) 500 mg tablet Take 500 mg by mouth as needed. 06/21/20 21 Active albuterol 90 mcg/actuation inhaler Inhale as needed. Ac tive vitamin-iron fumarate-FA 28 mg iron- 800 mcg per tablet Take 1 tablet by mouth daily. Active estradioL (Estrace) 2 mg tablet Take 3 tablets (6 mg total) by mouth every evening. 115 tablet 2 06/21/20 24 Active progesterone oil 50 mg/mL injection Inject 1 mL (50 mg total) intramuscularly daily. (Begin when instructed by [facility]OP[facility] team) 20 mL 5 06/21/20 24 Active ergocalciferol (Vitamin D2) 50,000 Unit capsule Take 50,000 Units by mouth once a week. 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 started on 15 mg adderal tried modafinil (provigil) but had side effects with this Comments Yes Family History Medical History Relation Name Comments Seizures Brother Cullen Morse First seizure on 11/21/21 Skin cancer Maternal Grandfather Juventino Rosales Depression Mother Macy Vazquez Obesity Mother's Brother Amari Rosales Anxiety disorder Sister Laine Pacheco Relation Name Status Comments Brother Cullen Morse Maternal Grandfather Juventino Rosales Mother Macy Vazquez Mother's Brother Amari Lepper Sister Laine Pacheco Social History Tobacco Use Types Packs/Day Years Used Date Smoking Tobacco: Never Passive Smoke Exposure: Past Smokeless Tobacco: Never Tobacco Cessation:Counseling Given: Not Answered Passive Exposure Comments:father smoked when she was growing up Alcohol Use Standard Drinks/Week Comments Yes 0 (1 standard drink = 0.6 oz pure alcohol) I have 1 drink roughly once per month [facility] Utilities Answer Date Recorded In the past 12 months has e [employer], gas, oil, or water [place] threatened to shut off services in your home? No 10/15/2024 Hunger Vital Sign Answer Date Recorded Within the past 12 months, y ou worried that your food would run out before you got the money to buy more. Never true 01/03/20 25 Within the past 12 months, t he food you bought just didn't last and you didn't have money to get more. Never true 10/15/2024 PRAPARE - Transportation Answer Date Re corded In the past 12 months, has l ack of transportation kept you from medical appointments or from getting medications? No 12/2024 In the past 12 months, has l ack of transportation kept you from meetings, work, or from getting things needed for daily living? No 10/15/2024 Depression Answer Date Recor ded PHQ-9 Total Score (max 27) 2 10/14 Housing Stability Answer Date Recorded What is your living situation today? I have a [facility] place to live 10/15/2024 Comments Yes Sex and Gender Information Value Date Recorded Sex Assigned at Female 09/26/2023 12:48 PM WORD PROCESSING SUPERVISOR Legal Sex Female 12:25 PM CDT Gender Identity Female 09/26/2023 12:48 PM WORD PROCESSING SUPERVISOR Sexual Orientation Straight 09/26/2023 12 :48 PM WORD PROCESSING SUPERVISOR Last Filed Vital Signs Vital Sign Reading Time Taken Comments Blood Pressure 99/65 07/22/2024 11:20 AM CDT Pulse 55 07/22/2024 10:50 AM CDT Temperature 37 C (98.6 F) 07/22/2024 8:37 AM CDT Respiratory Rate 16 07/22/2024 11:20 AM CDT Oxygen Saturation 96% 07/22/2024 11:20 AM CDT Inhaled Oxygen Concentration - - Weight 84.6 kg (186 lb 8.2 oz) 07/22/2024 8:39 A M CDT Height 163.3 cm (5' 4.29) 07/22/2024 8:39 AM CD T Body Mass Index 31.73 07/22/2024 8:39 AM CDT Plan of Treatment Health Maintenance Due Date Last Done Comments Hepatitis B Vaccines (1 of 3 - 19+ 3-dose series) 2010 Pneumococcal vaccine (0-49 years) (1 of 2 - PCV) 2010 Asthma Action Plan 10/14/2023 Asthma Control Test Questionnaire 10/14/2023 Asthma Management/Exacerbation Questionnaire (AMQ/AEQ) 10/14/2023 Depression Screening (Annual PHQ-2) 10/13/2024 Influenza Vaccine (#1) 2025 , 07/13/2024, 03/23/2024, Additional history exists Cervical/Vaginal Cancer Screening 12/06/2027 12/06/2024 DTaP,Tdap,and Td Vaccines (5 - Td or Tdap) 2035 2025, 10/15/2012, 05/17/2003, Additional history exists RSV vaccine - (32-36 weeks) or 60+ years (1 - 1-dose 75+ series) 2066 HPV Vaccines Completed 10/20/2009, 04/14, 03/08/2009 HIV Screening Completed 10/28/2023 Hepatitis C Screening Completed 10/28/2023 COVID-19 Vaccine Completed 08/05/2024, 07/13/2021 IPV Vaccines Aged Out No longer eligi ble based on patient's age to complete this topic Procedures Procedure Name Priority Date/Time Associated Diagnosis Comments HCV AB SCRN W/REFLEX TO HCV PCR, S Routine 10/28/2023 12:51 PM WORD PROCESSING SUPERVISOR Counseling Preconception HIV-1/-2 AG AND AB SCREEN, PLASMA Routine 10/28/2023 12:51 PM WORD PROCESSING SUPERVISOR Counseling Preconception from Last 3 Months or Most Recently Relevant to Health Maintenance Results * HIV-1/-2 Ag and Ab Screen, Plasma (10/28/2023 12:51 PM WORD PROCESSING SUPERVISOR) HIV-1/-2 Ag and Ab Screen, P Negative Negative 10/28/2023 8:58 PM WORD PROCESSING SUPERVISOR [facility] Comment: Negative result does not rule out HIV infection. If exposure to HIV infection occurred <14 days ago, contact the laboratory to request addition of HIV-1/HIV-2 RNA detection, Plasma (HIP12). Blood (Blood, Venous) 10/28/2023 12:51 PM WORD PROCESSING SUPERVISOR 10/28/2023 5:50 PM WORD PROCESSING SUPERVISOR Xiomara Benjamin M.D., Ph. D., M.D., Ph.D. LAB MICROBIOLOGY - BLOOD ORDERABLES Final Result Performing Organization Address City/State/[facility] Co de Phone Number [facility] [address] [place] [address] [facility] [address] [place] [address] * HCV Ab Scrn w/Reflex to HCV PCR, Serum (10/28/2023 12:51 PM WORD PROCESSING SUPERVISOR) HCV Ab Screen, S Negative Negative 10/28/2023 9:27 PM WORD PROCESSING SUPERVISOR [facility] Comment:Vvjmmj-an-qwykog rat io is <1.00. Blood (Blood, Venous) 10/28/2023 12:51 PM WORD PROCESSING SUPERVISOR 10/28/2023 5:50 PM WORD PROCESSING SUPERVISOR Xiomara Benjamin M.D., Ph. D., M.D., Ph.D. LAB MICROBIOLOGY - BLOOD ORDERABLES Final Result Performing Organization Address City/[facility] Co de Phone Number [facility] [address] [place] [address] [facility] [address] [place] [address] [place] [address] from Last 3 Months or Most Recently Relevant to Health Maintenance Insurance [employer] Advance Directives For more information, please contact: [phone] * Full Code (Latest Code Status on File) Date Activated Date Inactivated Comments 07/22/2024 8:14 AM 07/22/2024 2:10 PM Question Answer Comments Full Code: Discussed * Full Code Date Activated Date Inactivated Comments 06/15/2024 8:18 AM 06/15/2024 1:37 PM Question Answer Comments Full Code: Discussed * Full Code Date Activated Date Inactivated Comments 11/13/2023 6:33 AM 11/13/2023 12:18 PM Question Answer Comments Full Code: Discussed Care Teams Digital Artist Relationship Specialty Start Date End Date None Reported, Pcp PCP - General 08/20/24
--- OUTSIDE RECORDS SUMMARY | 2025-07-01 16:31 | XMS_ITS | Encounter Summary ---
Author Organization [facility] Address [address] [facility] [place] [address] Care Team Providers Care Buttermaker Name Role Phone Jaci Nelson APRN CN Unavailable [phone] System, Provider Not In Primary Care Provider Un available Binh Plata MD Unavailable + [phone] Binh Plata MD Unavailable + [phone] Adriana Velasquez MD Unavailable [phone] Sammi Cook Primary Care Provider [phone] Encounter Details Date Type Department Care Team (Late st Contact Info) Description 03/25/2025 Results Follow-Up [facility] Services - Womens and Child Service Line [address] [place] [phone] Binh Plata MD [address] [facility] [address] [place], [place] [id number] Subj: Message about your results Social History Tobacco Use Types Packs/Day Years Used Date Smoking Tobacco: Never Passive Smoke Exposure: Never Smokeless Tobacco: Never Alcohol Use Standard Drinks/Week Comments Not Currently 0 (1 standard drink = 0.6 oz pur e alcohol) PHQ-2 Answer Date Recorded PHQ-2 Score 0 12/06/2024 [place] Depression Scale Answer Date Recorded [place] Depression Scale Total 0 05/12/2025 The thought [...] in an abandoned building, in an overnight group home, or couch-surfing.) Yes 05/09/2025 Are you worried [...] Sex Assigned at Female 10/25/2024 3:40 PM REVENUE COORDINATOR Legal Sex Female 4:56 AM REVENUE COORDINATOR Gender Identity Female 10/25/2024 3:40 PM REVENUE COORDINATOR Sexual Orientation Straight 10/25/2024 3: 40 PM REVENUE COORDINATOR 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 Not on file Not on file documented as of this encounter Plan of Treatment Upcoming Encounters Date Type Department Care Team (Late st Contact Info) Description 07/11/2025 2:15 PM CDT Office Visit [facility] [address] [phone] Binh Plata MD [address] [address] documented as of this encounter Visit Diagnoses Not on filedocumented in this encounter Care Teams Buttermaker Relationship Specialty Start Date End Date System, Provider Not In PCP - General Clinic 10/19/24 04/14/25 Sammi Cook [address] [address] PCP - General 04/15/25 Jaci Nelson APRN CNM [address] [address] [employer]akes Machine Operator bone drier operator 10/19/24 Binh Plata MD [address] [address] Physician bone drier operator 10/25/24 Binh Plata MD [address], [address] [address] Assigned OBGYN Provider 03/04/25 Adriana Velasquez MD [address] [place] [id number] Assigned Pediatric Specialist Provider 03/04/25 documented as of this encounter
--- OUTSIDE RECORDS SUMMARY | 2025-07-01 16:31 | XMS_ITS | Encounter Summary ---
Author Organization [place] Address [address] [facility] [place] [address] Care Team Providers Care [facility] Office Supervisor Name Role Phone Jaci Nelson APRN CN Unavailable [phone] System, Provider Not In Primary Care Provider Un available Binh Plata MD Unavailable + [phone] Binh Plata MD Unavailable + [phone] Adriana Velasquez MD Unavailable [phone] Smami Cook Primary Care Provider [phone] Encounter Details Date Type Department Care Team (Late st Contact Info) Description 03/16/2025 Results Follow-Up [facility] Services - Womens and Child Service Line [address] [place] [phone] Binh Plata MD [address] [facility], [facility] [address] [place], [place] [id number] Subj: Message about your results Social History Tobacco Use Types Packs/Day Years Used Date Smoking Tobacco: Never Passive Smoke Exposure: Never Smokeless Tobacco: Never Alcohol Use Standard Drinks/Week Comments Not Currently 0 (1 standard drink = 0.6 oz pur e alcohol) PHQ-2 Answer Date Recorded PHQ-2 Score 0 12/06/2024 Dumas Depression Scale Answer Date Recorded Dumas Depression Scale Total 0 05/12/2025 The thought [...] in an abandoned building, in an overnight alf, or couch-surfing.) Yes 05/09/2025 Are you worried [...] Sex Assigned at Female 10/25/2024 3:40 PM POLICE SURGEON Legal Sex Female 4:56 AM POLICE SURGEON Gender Identity Female 10/25/2024 3:40 PM POLICE SURGEON Sexual Orientation Straight 10/25/2024 3: 40 PM POLICE SURGEON 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 Not on file Not on file documented as of this encounter Plan of Treatment Upcoming Encounters Date Type Department Care Team (Late st Contact Info) Description 07/11/2025 2:15 PM CDT Office Visit [facility] [address] [phone] Binh Plata MD [address] [address] documented as of this encounter Visit Diagnoses Not on filedocumented in this encounter Care Teams [facility] Office Supervisor Relationship Specialty Start Date End Date System, Provider Not In PCP - General Clinic 10/19/24 04/14/25 Sammi Cook [address] [address] PCP - General 04/15/25 Jaci Nelson APRN CNM [address] [address] Career Manager post closing specialist 10/19/24 Binh Plata MD [address] [address] Physician post closing specialist 10/25/24 Binh Plata MD [address], [address] [address] Assigned OBGYN Provider 03/04/25 Adriana Velasquez MD [address] [place] [id number] Assigned Pediatric Specialist Provider 03/04/25 documented as of this encounter
--- OUTSIDE RECORDS SUMMARY | 2025-07-01 16:31 | XMS_ITS | Encounter Summary ---
Author Organization [place] Address [facility] [place] [address] Care Team Providers Care Revenue Integrity Analyst Name Role Phone Jaci Nelson APRN CN Unavailable [phone] System, Provider Not In Primary Care Provider Un available Binh Plata MD Unavailable + [phone] Binh Plata MD Unavailable + [phone] Adriana Velasquez MD Unavailable +[phone] Sammi Cook Primary Care Provider [phone] Encounter Details Date Type Department Care Team (Late st Contact Info) Description 04/13/2025 Results Follow-Up [facility] [address] [place] [address] Binh Plata MD [address], [address] [place] [address] Subj: Message about your results Social History Tobacco Use Types Packs/Day Years Used Date Smoking Tobacco: Never Passive Smoke Exposure: Never Smokeless Tobacco: Never Alcohol Use Standard Drinks/Week Comments Not Currently 0 (1 standard drink = 0.6 oz pur e alcohol) PHQ-2 Answer Date Recorded PHQ-2 Score 0 12/06/2024 Clinton Depression Scale Answer Date Recorded [place] Depression Scale Total 0 05/12/2025 The thought [...] in an abandoned building, in an overnight [facility], or couch-surfing.) Yes 05/09/2025 Are you worried [...] Sex Assigned at Female 10/25/2024 3:40 PM HEALTH CARE TECHNICIAN Legal Sex Female 4:56 AM HEALTH CARE TECHNICIAN Gender Identity Female 10/25/2024 3:40 PM HEALTH CARE TECHNICIAN Sexual Orientation Straight 10/25/2024 3: 40 PM HEALTH CARE TECHNICIAN 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 Not on file Not on file documented as of this encounter Plan of Treatment Upcoming Encounters Date Type Department Care Team (Late st Contact Info) Description 07/11/2025 2:15 PM CDT Office Visit [facility] [address] [phone] Binh Plata MD [address] [address] documented as of this encounter Visit Diagnoses Not on filedocumented in this encounter Care Teams Revenue Integrity Analyst Relationship Specialty Start Date End Date System, Provider Not In PCP - General Clinic 10/19/24 04/14/25 [facility] [address] [address] PCP - General 04/15/25 Jaci Nelson APRN [facility] [address] [place] [address] Aircraft Shipping Checker program proposals coordinator 10/19/24 Binh Plata MD [address], [address] [address] Physician program proposals coordinator 10/25/24 Binh Plata MD [address], [address] [address] Assigned OBGYN Provider 03/04/25 Adriana Velasquez MD [address] [place] [address] Assigned Pediatric Specialist Provider 03/04/25 documented as of this encounter
--- OUTSIDE RECORDS SUMMARY | 2025-07-01 16:31 | XMS_ITS | Encounter Summary ---
Author Organization [place] Address [address] [facility] [address] Care Team Providers Care Leading Firefighter Name Role Phone NelsonTheresa delacruzlorena JENKINS Unavailable [phone] Binh Plata MD Unavailable Binh Plata MD Unavailable Adriana Velasquez MD Unavailable [phone] Sammi Cook Primary Care Provider [phone] Encounter Details Date Type Department Care Team (Late st Contact Info) Description 05/11/2025 Results Follow-Up [facility] [place] [address] [place] [address] Codi Berry, DO [address] [place] [address] Subj: Message about your results Social History Tobacco Use Types Packs/Day Years Used Date Smoking Tobacco: Never Passive Smoke Exposure: Never Smokeless Tobacco: Never Alcohol Use Standard Drinks/Week Comments Not Currently 0 (1 standard drink = 0.6 oz pur e alcohol) PHQ-2 Answer Date Recorded PHQ-2 Score 0 12/06/2024 [place] Depression Scale Answer Date Recorded [place] Depression Scale Total 0 05/12/2025 The thought [...] in an abandoned building, in an overnight fci, or couch-surfing.) Yes 05/09/2025 Are you worried [...] Assigned at Female 10/25/2024 3:40 PM HEALTH SCREENER Legal Sex Female 4:56 AM HEALTH SCREENER Gender Identity Female 10/25/2024 3:40 PM HEALTH SCREENER Sexual Orientation Straight 10/25/2024 3: 40 PM HEALTH SCREENER 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 Not on file Not on file documented as of this encounter Plan of Treatment Upcoming Encounters Date Type Department Care Team (Late st Contact Info) Description 07/11/2025 2:15 PM CDT Office Visit [facility] [address] [phone] Binh Plata MD [address], [address] [address] documented as of this encounter Visit Diagnoses Not on filedocumented in this encounter Care Teams Leading Firefighter Relationship Specialty Start Date End Date Sammi Cook [address] [address] PCP - General 04/15/25 Jaci Nelson APRN [facility] [address] [address] Circulation Assistant grinding wheel facer 10/19/24 Binh Plata MD [address] [address] Physician grinding wheel facer 10/25/24 Binh Plata MD [address] [address] Assigned OBGYN Provider 03/04/25 Adriana Velasquez MD [address] [place] [phone] Assigned Pediatric Specialist Provider 03/04/25 documented as of this encounter
--- OUTSIDE RECORDS SUMMARY | 2025-07-01 16:31 | XMS_ITS | Clinical Summary ---
Author Organization [facility] Address [address] [place] [address] Care Team Providers Care Recreation Worker Name Role Phone Lisa Cook MD Primary Care P rovider Allergies No known active allergies Medications valACYclovir (Valtrex) 500 mg tabletIndication s:Recurrent cold sores Take 1 Tablet (500 mg) by mouth once daily. For cold sore/herpes prevention 90 Tablet 3 1 Active betamethasone dipropionate 0.05% (DIPROSONE 0.05% OINTMENT) 0.05 % ointmentIndicati ons:Dermatitis Apply topically to affected area(s) two times daily. 45 g 2 Active Menopur 75 unit solr Inject 75 units subcutaneous. 4 Active leuprolide acetate 1 mg/0.2 mL subcutaneous injection Inject 2 mg subcutaneous one time if needed. 4 Active Follitropin Beta 900 unit/1.08 mL crtg Inject 150 units subcutaneous. 4 Active Follitropin Beta 300 unit/0.36 mL crtg Inject 150 units subcutaneous. 4 Active letrozole (FEMARA) 2.5 mg tablet Take 5 mg by mouth. 4 Active Choriogonadotrop in Edward,HumRec 250 mcg/0.5 mL injection Inject 0.25 mg subcutaneous one time if needed. 4 Active Cetrorelix Acetate 0.25 mg kit Inject 0.25 mg subcutaneous. 4 Active albuterol HFA (PRO-AIR; VENTOLIN; PROVENTIL) 90 mcg/actuation inhalerIndicatio ns:Asthma, unspecified asthma severity, unspecified whether complicated, unspecified whether persistent (HC),Annual physical exam Inhale 1-2 Puffs by mouth every 4 hours if needed for Shortness Of Breath or Wheezing. 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 Overview (03/23/2024): Left TMJ disc displacement with reduction with intermittent catching Rule out bilateral TMJ DJD - flattening per ROUSSEAU Bilateral temporomandibular joint pain 3 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 Overview (06/21/2021): takes daily Valcyclovir, has taken this daily since about 2010 If she does not take she gets cold sores frequently around mouth with sweating Has never had genital sores Herpesviral vesicular dermatitis 06/21/2021 Overview (03/23/2024): takes daily Valcyclovir, has taken this daily since about 2010 If she does not take she gets cold sores frequently around mouth with sweating Has never had genital sores Eczema 05/16/2021 Dyspareunia, female 08/08/2020 Overview (05/16/2021): INSTALLERS MECHANICAL on June 06, 2011 in [facility] notes that patient had a laparoscopic evaluation for endometriosis which was negative. She was also seen by GI and had a colonoscopy which was negative for celiac disease, IBS with suspected. Reported deep/penetration pain with sex during clinic visits in 2019, 2020. STI work up in past negative. 05/16/21 - plan to try pelvic floor strengthening with personal keggel exercises Narcolepsy 07/18/2016 Overview (05/16/2021): Diagnosed Jun- on sleep study (See notes [facility] Everywhere) MSLT REM sleep on 1 nap and shortened REM latency on overnight PSG. started on 15 mg adderal tried modafinil (provigil) but had side effects with this Resolved Problems Problem Noted Date Diagnosed Date Resolved Date Bilateral cleft lip, incomplete 12/31/2012 05/08/2022 Immunizations Immunization Administration Dates Next Due COVID-19 vaccine (RedT NTech 30mcg/0.3mL) PF, MDV 07/13/2021 DTP 06/25/1996 Hepatitis B (Peds) 02/10/2004,05/17/2003, 003 Human Papilloma Virus Vaccine 10/20/2009, 009,03/08/2009 Influenza A (H1N1), Inactivated 10/20/2009 Influenza Virus, Unspecified 08/08/2020, 07/17/2017,07/27/2016,07/04,07/26/2012,10/12/2010,10/23/2009 Influenza, IIV4 03/23/2024,08/12/2022 MMR 10/02/2016,06/25/1996 Meningococcal Vaccine (Menactra) 06/12/2009 Oral Polio Vaccine 06/25/1996 Td (Age >=7 Years) 05/17/2003 Tdap 10/15/2012 Family History Medical History Relation Name Comments Diabetes type II Mother Relation Name Status Comments Mother Social History Tobacco Use Types Packs/Day Years Used Date Smoking Tobacco: Never Smokeless Tobacco: Never Tobacco Cessation:Counseling Given: Yes Alcohol Use Standard Drinks/Week Comments Yes 1 (1 standard drink = 0.6 oz pur e alcohol) rarely 1 a month PHQ-2 Answer Date Recorded PHQ-2 TOTAL SCORE 0 03/23/2024 Social Connections Answer Date Recorded Do you often feel lonely or isolated from those around you? 0 03/23/2024 Financial Resource Strain Answer Date R ecorded Difficulty of Paying Living Expenses 3 03/23/2024 Difficulty of Paying Living Expenses Not on file 03/23/2024 Food Insecurity Answer Date Recorded Do you worry your food will run out before you are able to buy more? 1 03/23/2024 Transportation Needs Answer Date Record ed Does lack of transportation keep you from medica l appointments? 1 03/23/2024 Does lack of transportation keep you from work, meetings or getting things that you need? 1 03/23/2024 Housing Stability Answer Date Recorded What is your housing situation today? 1 03/23/2024 Utilities Answer Date Recorded Do you have trouble paying f or utilities (for example, heat, electricity, water, phone)? 1 03/23/2024 Comments No Sex and Gender Information Value Date Recorded Sex Assigned at Not on file Legal Sex Female 6:25 AM CHANGE RELEASE MANAGER Gender Identity Not on file Sexual Orientation Not on file Obstetrics History Para Term AB IAB SAB Ectopic Multiple Livin g Live Births 0 0 0 0 0 0 0 0 0 0 0 Last Filed Vital Signs Vital Sign Reading Time Taken Comments Blood Pressure 104/69 03/23/2024 7:34 AM CDT Pulse 62 03/23/2024 7:34 AM CDT Temperature 36.4 C (97.6 F) 05/16/2011 12:10 PM CDT Respiratory Rate 16 05/16/2021 7:53 AM CDT Oxygen Saturation 98% 03/23/2024 7:34 AM CDT Inhaled Oxygen Concentration - - Weight 81.7 kg (180 lb 1.6 oz) 03/23/2024 7:34 A M CDT Height 163 cm (5' 4.17) 03/23/2024 7:34 AM CDT Body Mass Index 30.75 03/23/2024 7:34 AM CDT Plan of Treatment Health Maintenance Due Date Last Done Comments HIV for age 15-65 2006 COVID-19 vaccine series (2 - Pfizer risk series) 08/03/2021 07/13/2021 Tetanus booster 10/15/2022 10/15/2012, 05/17/2003 Pap test for age 21-65 05/16/2024 05/16/2021 BMI (ht and wt on same day) for age 18+ 03/23/2025 03/23/2024, 08/12/2022, 06/21/2021, Additional history exists Depression screening for age 12+ 03/23/2025 03/23/2024, 08/12/2022, 05/16/2021 Influenza Vaccine (#1) 2025 , 08/12/2022, 08/08/2020, Additional history exists RSV vaccine for adults or (1 - 1-dose 75+ series) 2066 Hepatitis B series for 19+ Completed 02/09, 05/17/2003, 04/13/2003 HPV series for age 9-45 Completed 10/20/19 10, 05/12/2009, 03/08/2009 Hepatitis C screening for age 18-79 Completed 08/12/2022 Pneumococcal series for age 6-49 Aged Out No longer eligible based on patient's age to complete this topic Medical Devices Implanted Type Area Finished Carpet Inspector Device Identifier Shelf Expiration Date Model / Serial / Lot Screw Cnnltd 4.0x28mm Part Thread [id number] Synthes - [id number] Implanted:Qty : 2 on 03/02/2010 at [facility] Ortho Imp.,Screw s & Plates Bilatera l: Foot [employer] 207.628# / / Screw 22mmx3.0 - [id number] Implanted:Qty : 2 on 03/02/2010 at [facility] Right: Foot ivi, Inc. Inc [id number]# / / Screw Comp 3.0x24 - [id number] Implanted:Qty : 1 on 03/02/2010 at [facility] Right: Foot ivi, Inc[employer] Inc [id number]# / / Implant On The Fly - [id number] Implanted:Qty : 3 on 03/02/2010 at [facility] Left: Foot ivi, Inc. Inc Description:3.0 x 26 mm MUC screw Explanted Type Area Finished Carpet Inspector Device Identifier Shelf Expiration Date Model / Serial / Lot Wire Kirs [id number] Julianna - [id number] Explanted:Qty: 1 on 03/02/2010 at [facility] Bilateral : Foot Julianna [employer] 0186-90# / / K-Wire 1.0x150 - [id number] Explanted:Qty: 6 on 03/02/2010 at [facility] Bilateral : Foot ivi, Inc. Inc 2031-3697# / / Wire Guide [id number] Nonthreaded [place] - [id number] Explanted:Qty: 2 on 03/02/2010 at [facility] Foot [employer] 250.596# / / Procedures Procedure Name Priority Date/Time Associated Diagnosis Comments ANTI HCV Routine 08/12/2022 8:35 AM CDT Need for hepatitis C screening test SALES SERVICE EXECUTIVE THIN PREP PAP SCREEN IMAGED Routine 05/16/2021 8:56 AM CDT Screening for cervical cancer from Last 3 Months or Most Recently Relevant to Health Maintenance Results * ANTI HCV (08/12/2022 8:35 AM CDT) HEPATITIS C ANTIBODY Non-React savannah Non-React savannah 08/12/2022 5:19 PM CDT [facility] Direct Vet Marketing [facility] Comment:Antibodies to HCV no t detected; does not exclude the possibility of exposure to HCV. Blood BLOOD SPECIMEN / Unknown Venipuncture / Unknown 08/12/2022 8:35 AM CDT 08/12/2022 8:37 AM CDT us Tony Lemus DO SEND OUTS Final Result [facility] [address] [place] [address], * SALES SERVICE EXECUTIVE THIN PREP PAP SCREEN IMAGED (05/16/2021 8:56 AM CDT) Case Report Gynecologic Cytology Report Case: [id number] Authorizing Provider: Lisa Cook Collected: 05/16/2021 0856 MD Abraham Ordering Location: [facility] Received: 05/16/2021 0926 Clinic First Screen: Marissa Orourke Specimen: SALES SERVICE EXECUTIVE ThinPrep Vial Screening, Cervical 05/25/2021 4:02 PM CDT [facility] INTERPRETATION/ RESULT NEGATIVE FOR INTRAEPITHELIAL LESION OR MALIGNANCY (NIL) (none) 05/25/2021 4:02 PM CDT [facility] at 1602 CDT SPECIMEN ADEQUACY Satisfactory for evaluation Endocervical component present Scant cellularity 05/25/2021 4:02 PM CDT [facility] EN[facility] LAB[facility] HPV REQUEST HPV if ASCUS 05/25/2021 4:02 PM CDT [facility] Date of LMP 04/21/21 05/25/2021 4:02 PM CDT [facility] EN[facility] Last Pap Date Aug 16 2020 05/25/2021 4:02 PM CDT [facility] Last Pap Result NIL 4:02 PM CDT [facility] Abnormal Pap or [place] Bx in last 5 years No 05/25/2021 4:02 PM CDT [facility] Menstrual Status Regular Periods 05/25/2021 4:02 PM CDT [facility] [place] Bx Done Today No 05/25/2021 4:02 PM CDT [facility] Additional Information None given 05/25/2021 4:02 PM CDT [facility] Comment: Cytology is screened at [facility] - [address], [place] [address] and [facility] - [address], [place] [address] and [facility] - [address] [place] [address] [place] [address] Interpreted at [facility] - [address] [place] [address] Automated Review Successful 05/25/2021 4:02 PM CDT [facility] Comment:Specimen processed s uccessfully by automated director of religious activities device, ThinPrep Imaging System, [employer] Note The pap test is a screening technique, not a diagnostic procedure. It is used primarily to screen for squamous cancers and precursor lesions. Published studies have shown that it is subject to both false negative and false positive results. The pap test should not be used as the sole means to diagnose or exclude pre-malignant and malignant lesions. 05/25/2021 4:02 PM CDT [facility] ENTRAL LABORATORY Other (Cervical) Non-Blood / Unknown 05/16/2021 8:56 AM CDT 05/16/2021 9:26 AM CDT Lisa Cook MD PATHOLOGY/CYTOL OGY Final Result [facility] [address] [place] [address], [place] from Last 3 Months or Most Recently Relevant to Health Maintenance Insurance [employer] Advance Directives * Full Code (Latest Code Status on File) Date Activated Date Inactivated Comments 05/16/2011 10:08 AM 05/16/2011 4:28 PM * Full Code Date Activated Date Inactivated Comments 03/02/2010 6:55 AM 03/02/2010 7:12 PM * Full Code Date Activated Date Inactivated Comments 04/12/2009 9:41 AM 04/12/2009 3:05 PM Care Teams Recreation Worker Relationship Specialty Start Date End Date Lisa Cook MD PCP - General Family Practice 05/16/21
[2025-07-01 16:41] VITALS: BP 126/78; PULSE 92; RESP 20; TEMP 36.6; O2SAT 97; BMI 31.0
--- NOTE | 2025-07-01 16:51 | ED_ITS ---
HPI - Chest Pain General Time Seen by Provider: 17:02 Date Seen: 07/01/25 Chief Complaint: Chest Pain Stated Complaint: Chest Tightness, tingling arms Time Seen by Provider: 07/01/25 16:47 Source: patient and RN notes reviewed Mode of arrival: ambulatory Limitations: no limitations History of Present Illness HPI narrative: This 35-year-old female is presenting with an area of isolated left breast pain that has been there for about 4-5 hours. She will get sharp shooting pains. It will worsen when she attempts to attach her 7-week-old baby to breast. He was born premature, he is not latching well and when he does latch, is causing pain. She is mostly pumping. Is on the inner upper left breast where she is feeling this. She states it feels like a constant pressure-like some buddies poking on her and then she will get sharp pains. She has not felt any lumps in the breast. She has had no fevers or chills. She had an emergent , has noted a little scar pain when she is up an active. No purulent vaginal discharge, no abdominal pain. She has asthma but does not feel like that is activated at all, not coughing, not short of breath. She notes at times her arms of felt tingly, when she wakes up in the morning she states her hands feel really tight and it takes a while to open them. Patient had severe preeclampsia in 3rd trimester. Related Data Home Medications ?Medication ?Instructions ?Recorded ?Confirmed 103-folic ac 400 tab PO 06/24/22 06/24/22 mcg-omega-3 32.5 mg-dha-fish oil chew tablet ( with DHA and Folic Acid) enalapril maleate 10 mg tablet 10 mg PO DAILY 07/01/25 07/01/25 nifedipine 30 mg tablet,extended PO 07/01/25 release 24 hr Allergies Allergy/AdvReac Type Severity Reaction Status Date / Time No Known Drug Allergies Allergy Verified 07/01/25 16:39 Review of Systems Status of ROS Reports: 6 or more systems reviewed and unremarkable except as noted in History and below [facility] Surgical History History of repair of cleft lip ?Z87.730 - Personal history of (corrected) cleft lip and palate (ICD-10) History of bunionectomy (~2010) ?Z98.890 - Other specified postprocedural states (ICD-10) History of laparoscopy (~2007) ?Z98.890 - Other specified postprocedural states (ICD-10) Family History Maternal Grandfather High blood pressure Mother Depression Social History Narrative: , college education, 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 Vital stable. Seen exam room 1. She has pupils are equal round, sclera clear, symmetrical facial function. Neck supple, no adenopathy, no jugular venous distension come full range of motion. Lungs are clear, good air entry, no wheezing crackles, no tachypnea, no accessory muscle use. Pain is in the left upper inner breast, skin overlying is normal. She is palpably tender in the tissue but note no underlying significant mass or engorgement of breast tissue. CV regular rate and rhythm, no murmur, normal S1-S2, no S3-S4. Abdomen is soft, nontender, nondistended, no organomegaly. She has well-healed Pfannenstiel i ncision, feel no underlying masses, no seromas, does have some more mild tenderness at the left lateral aspect of this but again there is no palpable abnormality in the incision is well healed. Documenting provider has reviewed patient's vital signs: yes Course Course ED Course: We did review that it I suspect her incision pain is just to do with tissue changes and increasing activity. There is no concerning visible or palpable deficits at this time. She has point chest wall tenderness within the left breast. Do wonder if this could be some engorgement or breast tissue changes with breast-feeding. She is 7 weeks per report and the should be out of the range of preeclampsia. Doubt anything like post cardiomyopathy, she is clinically appearing quite well. Her EKG shows a pulse rate in the 50s, she is not tachycardic, not hypoxic and doubt pulmonary emboli as a source but will look at a D-dimer. We did discuss with doing chest CT PE protocol, there be limitations with breast-feeding recommended for 24 hours. She agrees with looking at a D-dimer, doing a screening chest x-ray. She understands if the D-dimer is elevated that we want to proceed with chest CT PE protocol. However, clinically her exam seems to be consistent with soft tissue changes. With her symptoms in her hands and numbness tingling, wonder about carpal tunnel. I will do a screening TSH. We also did discuss development of paresthesias in patient's, workup not something that we delve into in the ED but we certainly will look at appropriate labs today as far as her other symptoms. Her EKG is reassuring, no ischemia. Will get a troponin. Reevaluation(s) Time of Reevaluation #1: 18:57 Reevaluation #1: Patient was given a copy of her chest x-ray, reviewed her normal labs. She states the ice pack completely took away all of her pain. I really do feel that her symptoms are coming from breast pain. It certainly could be engorgement or lactational type pain. I have asked her to work with the freight traffic consultant. We did discuss positioning and holding the baby attempting to breastfeed, this may be bothering her wrists. She still could conceivably be in a time frame for carpal tunnel syndrome as well. We discussed trying [id number] wrist splints, see if that helps. Otherwise follow up in clinic for re-evaluation. Questions were answered, signs and symptoms for re-evaluation reviewed. She is discharged from here in stable condition. Vital Signs Vital signs: Initial Vital Signs Temperature 97.9 F 07/01/25 16:41 Temperature Source Temporal Artery Scan 07/01/25 16:41 Pulse Rate 92 07/01/25 16:41 Respiratory Rate 20 07/01/25 16:41 Blood Pressure 126/78 07/01/25 16:41 Blood Pressure Mean 94 07/01/25 16:41 Pulse Oximetry 97 07/01/25 16:41 Oxygen Delivery Method Room Air 07/01/25 16:41 Vital Signs Temperature 97.9 F 07/01/25 16:41 Pulse Rate 92 07/01/25 16:41 Respiratory Rate 20 07/01/25 16:41 Blood Pressure 126/78 07/01/25 16:41 Pulse Oximetry 97 07/01/25 16:41 Oxygen Delivery Method Room Air 07/01/25 16:41 Temperature 97.9 F 07/01/25 16:41 Pulse Rate 92 07/01/25 16:41 Respiratory Rate 20 07/01/25 16:41 Blood Pressure 126/78 07/01/25 16:41 Pulse Oximetry 97 07/01/25 16:41 Oxygen Delivery Method Room Air 07/01/25 16:41 MDM - Chest Pain Lab Data Attestation: I reviewed the patient's lab results. Labs: Lab Results 07/01/25 Range/Units 17:25 WBC 5.70 (4.50-11.00) K/uL RBC 4.17 (4.00-5.20) m/uL Hgb 12.5 (12.0-16.0) gm/dL Hct 37.6 (33.0-51.0) % MCV 90 (80-100) fL MCH 30 (26-34) pg MCHC 33 (32-36) gm/dL RDW Coeff of Emilia 12.1 (11.5-15.5) % Plt Count 263 (140-440) K/uL Neut % (Auto) 55.4 (42.0-72.0) % Lymph % (Auto) 33.2 (20-44) % Florence % (Auto) 9.3 (0.0-11.0) % Eos % (Auto) 1.6 (0.0-7.0) % Baso % (Auto) 0.5 (0.0-3.0) % Neut # (Auto) 3.16 (1.7-7.0) K/uL Lymph # (Auto) 1.89 (0.90-2.90) K/uL Florence # (Auto) 0.50 (0.00-0.90) K/UL Eos # (Auto) 0.09 (0.00-0.50) K/uL Baso # (Auto) 0.03 (0.00-0.30) K/uL Abs Immat Gran (auto) 0.00 (0.00-0.30) K/uL Imm/Tot Granulo (auto) 0.0 % D-Dimer Quant (PE/DVT) 0.50 (0.00-0.50) ug/ml VBG pH 7.400 (7.32-7.43) VBG pCO2 47 (40-50) mmHG VBG pO2 31.3 (25-47) mmHG VBG HCO3 29 H (21-28) mmol/L Sodium 134 L (135-149) mmol/L Potassium 4.3 (3.6-5.1) mmol/L Chloride 101 (96-114) mmol/L Carbon Dioxide 28 (20-32) mmol/L Anion Gap 5 L (7-15) mEq/L BUN 19 (5-24) mg/dL Creatinine 0.9 (0.5-1.5) mg/dL Estimated Creat Clear 79.25 Estimated GFR 86 ml/min Glucose 97 (60-115) mg/dL Calcium 9.5 (8.4-10.6) mg/dL Magnesium 1.8 (1.5-2.6) mg/dL Total Bilirubin 0.3 (0.1-1.5) mg/dL AST 27 (12-35) U/L ALT 18 (4-35) U/L Alkaline Phosphatase 69 (40-150) U/L Troponin I < 0.01 (0.01-0.04) ng/mL C-Reactive Protein < 0.5 L (0.5-1.0) mg/dL NT-Pro-B Natriuret Pep 28 (See Note) pg/mL Total Protein 6.8 (6.0-8.3) g/dL Albumin 4.1 (3.3-5.0) g/dL TSH 1.450 (0.270-4.200) uIU/mL Imaging Data Chest x-ray: Attestation: I have reviewed the pertinent imaging results. My impression: Did visualize patient chest image, do not see any acute pathology. Radiologist's impression: Patient: GLORIA DELA CRUZ Facility:?[facility] Patient ID:?[id number] Site Patient ID:?[id number]. Site :?[id number] Study:?XRay-Chest PORTABLE-07/01/2025 5:49:01 PM Ordering Physician:Nolan Murillo Final Report: INDICATION: Chest pain 7 weeks post , left spot of isolated chest pain TECHNIQUE: Chest radiograph 1 view COMPARISON: None FINDINGS: The sensitivity and specificity of the exam are moderately limited by the patient`s body habitus. Mediastinum: The mediastinum is normal in appearance. The cardiac silhouette is at upper limits of normal in size. Lung: Both lungs are unremarkable in appearance. No sign of pleural effusion seen. No pneumothorax is identified. Bone and Soft tissue: Unremarkable for age. IMPRESSION: 1. No acute cardiopulmonary disease is seen. Dictated by Frederick Oreilly MD @ 07/01/2025 5:51:13 PM Dictated by: Frederick Oreilly MD @ 07/01/2025 17:51:15 (Electronic Signature) ECG Data Attestation: I personally reviewed and interpreted this ECG as follows: (Sinus bradycardia, 51 beats per minute. No evidence of ischemia or infarct.) ECG interpretation date: 07/01/25 ECG interpretation time: 17:03 Discharge Plan Discharge Clinical Impression: Breast pain, left Patient Disposition: Home, Self-Care Condition: Stable Instructions: and Nipple Soreness (ED), and Breast Engorgement (ED), and Plugged Ducts (ED) Additional Instructions: Please contact the freight traffic consultant, see if they have any other advice for you. You certainly can use Tylenol and ibuprofen for symptoms. Given the ice pack did help you here, I do wonder if there could be some engorgement. You can continue to use ice as needed for comfort. Try wrist splints in see if they help you, can wear them at least at night. Sometimes with the positioning of your wrist and attempting to hold the child during , the wrists can have painful symptoms. and even the . Can be a time of carpal tunnel. We did check her thyroid and it was normal. Please follow up in clinic with your primary care provider within the next week to recheck and discuss any ongoing symptoms. Activity Level: Activity as Tolerated Prescriptions: No Action with DHA-Folic Acid 400-32.5 mcg-mg tablet,chewable PO nifedipine 30 mg tablet extended release 24hr PO enalapril maleate 10 mg tablet 10 mg PO DAILY Follow Up/Referrals: Provider,Not a Local [Primary Care Provider, Family Practice] Stand Alone Forms: MyHealth Info Instructions Procedures ABG Interpretation ABG Results: 07/01/25 17:25 VBG pH 7.400 VBG pCO2 47 VBG pO2 31.3 VBG HCO3 29 H
--- NOTE | 2025-07-01 17:14 | CRLHL7_ITS ---
For Patients: As a result of the Century Cures Act, medical imaging exams and procedure reports are released immediately into your electronic medical record. You may view this report before your referring provider. If you have questions, please contact your health care provider. INDICATION: Chest pain 7 weeks post , left spot of isolated chest pain TECHNIQUE: Chest radiograph 1 view COMPARISON: None FINDINGS: The sensitivity and specificity of the exam are moderately limited by the patient`s body habitus. Mediastinum: The mediastinum is normal in appearance. The cardiac silhouette is at upper limits of normal in size. Lung: Both lungs are unremarkable in appearance. No sign of pleural effusion seen. No pneumothorax is identified. Bone and Soft tissue: Unremarkable for age. IMPRESSION: 1. No acute cardiopulmonary disease is seen. Dictated by Frederick Oreilly MD @ 07/01/2025 5:51:13 PM Dictated by: Frederick Oreilly MD @ 07/01/2025 17:51:15 (Electronically Signed)
[2025-07-01 17:20] VITALS: O2SAT 98
[2025-07-01 17:30] LABS: HCO3 VBG 29 mmol/L (21-28); PCO2 VBG 47 mmHG (40-50); PO2 VBG 31.3 mmHG (25-47); pH VBG 7.400 (7.32-7.43)
[2025-07-01 17:31] LABS: Hematocrit* 37.6 % (33.0-51.0); Hemoglobin* 12.5 gm/dL (12.0-16.0); Immature Granulocytes Abs Auto 0.00 K/uL (0.00-0.30); Immature Granulocytes Pct Auto 0.0 %; Lymphocytes Absolute Auto 1.89 K/uL (0.90-2.90); Mean Corpuscular HGB Conc 33 gm/dL (32-36); Mean Corpuscular Hemoglobin 30 pg (26-34); Mean Corpuscular Volume 90 fL (80-100); RDW Coefficient of Variation % 12.1 % (11.5-15.5); Red Blood Count* 4.17 m/uL (4.00-5.20); White Blood Count* 5.70 K/uL (4.50-11.00)
[2025-07-01 17:32] LABS: Slide Review Reflex No
[2025-07-01 17:50] LABS: Albumin* 4.1 g/dL (3.3-5.0); Chloride* 101 mmol/L (96-114); Potassium* 4.3 mmol/L (3.6-5.1); Sodium* 134 mmol/L (135-149)
[2025-07-01 17:52] LABS: Alanine Aminotransferase* 18 U/L (4-35); Aspartate Amino Transferase* 27 U/L (12-35); Blood Urea Nitrogen* 19 mg/dL (5-24); Creatinine* 0.9 mg/dL (0.5-1.5); Est. Creatinine Clearance* 79.25; Estimated Glomerular Filt Rate 86 ml/min
[2025-07-01 17:53] LABS: Alkaline Phosphatase* 69 U/L (40-150); Anion Gap 5 mEq/L (7-15); Bilirubin Total* 0.3 mg/dL (0.1-1.5); Calcium* 9.5 mg/dL (8.4-10.6); Carbon Dioxide* 28 mmol/L (20-32); Glucose* 97 mg/dL (60-115); Total Protein* 6.8 g/dL (6.0-8.3)
[2025-07-01 17:59] LABS: D Dimer Quantitative* 0.50 ug/ml (0.00-0.50)
[2025-07-01 18:23] LABS: NT Pro B Type NatriureticPept* 28 pg/mL (See Note)
[2025-07-01 18:24] LABS: TSH With Reflex to FT4* 1.450 uIU/mL (0.270-4.200)
[2025-07-01 19:05] VITALS: BP 110/73; PULSE 49; RESP 18; O2SAT 98
== END 2025-07-01 19:15 | disposition home or self-care (01) ==
PROVIDERS: Emergency Provider Family Medicine
DX: N64.4 Mastodynia (principal)
CPT/HCPCS: 36415; 71045; 80050; 80053; 82803; 83735; 83880; 84443; 84484; 85025; 85379; 86140; 93005; 94761; 99284